=== PATIENT | male | born 1950 ===

== ENCOUNTER 2020-05-13 08:00 | Outpatient (REF) | payer MEDICARE, MEDICAID, SELFPAY ==
[2020-05-13 12:25] LABS: Alanine Aminotransferase 15 U/L (0-40); Albumin Level 4.2 g/dL (3.5-5.0); Alkaline Phosphatase 50 U/L (39-117); Anion Gap 14 (12-20); Aspartate Amino Transferase 21 U/L (5-37); Bilirubin Direct 0.2 mg/dL (0.0-0.5); Bilirubin Total 0.6 mg/dL (0.0-1.0); Blood Urea Nitrogen 18 mg/dL (9-16); Calcium 8.8 mg/dL (8.4-10.2); Carbon Dioxide 29 mmol/L (22-29); Chloride 103 mmol/L (96-108); Estimated Glomerular Filt Rate > 60; Glucose Random 93 mg/dL (60-115); Potassium 3.9 mmol/L (3.3-5.1); Sodium 142 mmol/L (135-145); Total Protein 7.1 g/dL (6.5-8.0)
[2020-05-14 07:27] LABS: LDL Cholesterol Direct 132 mg/dL (<100)
== END 2020-05-13 08:01 | disposition home or self-care (01) ==
LOC: HO.HMGCLDS 08:00
PROVIDERS: PCP Internal Medicine; Visit Provider Internal Medicine
DX: I10 Essential (primary) hypertension (principal)
CPT/HCPCS: 36415; 80048; 80076; 83721

== ENCOUNTER → 2020-07-18 14:58 | Outpatient (BNVA) | payer SELFPAY | PROVIDERS: PCP Internal Medicine; Visit Provider Internal Medicine | DX: Z02.79 Encounter for issue of other medical certificate (principal) ==

== ENCOUNTER 2020-08-13 13:44 | Outpatient (REF) | payer MEDICARE, MEDICAID, SELFPAY ==
[2020-08-13 16:14] LABS: Glucose Urine UA NEG (NEG); Leukocyte Esterase Urine NEG (NEG); Nitrite Urine NEG (NEG); Urine Blood NEG (NEG); Urine Ketones 5 MG/DL (NEG); Urine Protein TRACE MG/DL (NEG-TRACE)
[2020-08-13 16:15] LABS: Appearance Urine CLEAR; Color Urine YELLOW
== END 2020-08-13 13:45 | disposition home or self-care (01) ==
LOC: HO.HMGCLDS 13:44
PROVIDERS: PCP Internal Medicine; Visit Provider Internal Medicine
DX: R31.9 Hematuria, unspecified (principal)
CPT/HCPCS: 81003

== ENCOUNTER 2020-11-12 13:52 | Outpatient (REF) | payer MEDICARE, MEDICAID, SELFPAY ==
[2020-11-12 17:15] LABS: Alanine Aminotransferase 24 U/L (0-40); Albumin Level 4.1 g/dL (3.5-5.0); Alkaline Phosphatase 56 U/L (39-117); Anion Gap 11 (12-20); Aspartate Amino Transferase 22 U/L (5-37); Bilirubin Total 0.3 mg/dL (0.0-1.0); Blood Urea Nitrogen 17 mg/dL (9-16); Carbon Dioxide 27 mmol/L (22-29); Chloride 103 mmol/L (96-108); Estimated Glomerular Filt Rate 60; Glucose Random 130 mg/dL (60-115); Potassium 4.1 mmol/L (3.3-5.1); Sodium 137 mmol/L (135-145); Total Protein 7.1 g/dL (6.5-8.0)
== END 2020-11-12 13:53 | disposition home or self-care (01) ==
LOC: HO.HMGCLDS 13:52
PROVIDERS: PCP Internal Medicine; Visit Provider Internal Medicine
DX: I10 Essential (primary) hypertension (principal); R31.9 Hematuria, unspecified
CPT/HCPCS: 36415; 80053

== ENCOUNTER 2021-08-21 07:39 | Outpatient (REF) | payer MEDICARE, MEDICAID, SELFPAY ==
[2021-08-21 11:25] LABS: MANUAL DIFF FLAG NO
[2021-08-21 11:34] LABS: Basophils Percent Auto 0.3 % (0-2); Eosinophils Percent Auto 2.4 % (0-4); Hemoglobin 14.2 g/dl (14.0-18.0); Imm Gran Abs Auto 0.01 X10*3/uL (0.00-0.03); Imm Gran Pct Auto 0.2 % (0.0-0.4); Lymphocytes Absolute Auto 2.6 X10*3/uL (1.2-4.9); Lymphocytes Percent Auto 41.1 % (20-40); Mean Corpuscular Hemoglobin 29.4 pg (27.0-33.0); Monocytes Absolute Auto 0.6 X10*3/uL (0.1-1.2); Monocytes Percent Auto 8.8 % (2-11); Neutrophils Percent Auto 47.2 % (45-73); Platelet Count 197 X10*3/uL (160-400); Red Blood Count 4.83 X10*6/uL (4.60-5.80); Red Cell Distribution Width 13.3 % (11.0-16.0); White Blood Count 6.4 X10*3/uL (4.8-10.8)
[2021-08-21 11:35] LABS: Eosinophils Absolute Auto 0.2 X10*3/uL (0.0-0.4)
[2021-08-21 12:10] LABS: Alanine Aminotransferase 58 U/L (0-40); Albumin Level 4.2 g/dL (3.5-5.0); Alkaline Phosphatase 51 U/L (39-117); Anion Gap 13 (12-20); Aspartate Amino Transferase 42 U/L (5-37); Bilirubin Total 0.5 mg/dL (0.0-1.0); Blood Urea Nitrogen 18 mg/dL (9-16); Calcium 9.2 mg/dL (8.4-10.2); Carbon Dioxide 27 mmol/L (22-29); Chloride 104 mmol/L (96-108); Estimated Glomerular Filt Rate 60; Glucose Fasting 100 mg/dL (60-99); Potassium 4.2 mmol/L (3.3-5.1); Sodium 140 mmol/L (135-145); Total Protein 7.4 g/dL (6.5-8.0)
[2021-08-21 12:13] LABS: TSH reflex Free T4 1.42 uIU/mL (0.32-4.0)
[2021-08-23 04:02] LABS: LDL Cholesterol Direct 141 mg/dL (<100)
== END 2021-08-21 07:40 | disposition home or self-care (01) ==
LOC: HO.HMGCLDS 07:39
PROVIDERS: Visit Provider Internal Medicine
DX: I10 Essential (primary) hypertension (principal)
CPT/HCPCS: 36415; 80053; 83721; 84443; 85025

== ENCOUNTER 2021-12-19 07:44 | Outpatient (REF) | payer MEDICARE, MEDICAID, SELFPAY ==
[2021-12-19 12:09] LABS: Alanine Aminotransferase 16 U/L (0-40); Albumin Level 4.2 g/dL (3.5-5.0); Alkaline Phosphatase 59 U/L (39-117); Anion Gap 13 (12-20); Aspartate Amino Transferase 20 U/L (5-37); Bilirubin Total 0.4 mg/dL (0.0-1.0); Blood Urea Nitrogen 14 mg/dL (9-16); Calcium 9.1 mg/dL (8.4-10.2); Carbon Dioxide 31 mmol/L (22-29); Chloride 101 mmol/L (96-108); Cholesterol 193 mg/dL; Estimated Glomerular Filt Rate 58; Glucose Fasting 95 mg/dL (60-99); HDL Cholesterol 48 mg/dL; LDL Cholesterol Calculated 130 mg/dl; Potassium 4.2 mmol/L (3.3-5.1); Sodium 141 mmol/L (135-145); Total Protein 7.3 g/dL (6.5-8.0); Triglycerides 79 mg/dL
== END 2021-12-19 07:45 | disposition home or self-care (01) ==
LOC: HO.HMGCLDS 07:44
PROVIDERS: PCP Internal Medicine; Visit Provider Internal Medicine
DX: I10 Essential (primary) hypertension (principal); R73.01 Impaired fasting glucose; R79.89 Other specified abnormal findings of blood chemistry
CPT/HCPCS: 36415; 80053; 80061

== ENCOUNTER 2022-09-10 14:57 | Outpatient (AMB) | payer MEDICARE, MEDICAID, SELFPAY ==
[2022-09-10 14:59] VITALS: BP 190/98; PULSE 68; O2SAT 98
--- NOTE | 2022-09-10 15:00 | A.OFFPC_ITS ---
Vital Signs 09/10/22 14:59 09/10/22 15:05 Height 6 ft BP 190/98 H 180/92 H Blood Pressure Location Rt brachial Lt brachial Position Sitting Sitting Pulse 68 Pulse Source Pulse Oximeter Pulse Oximetry (%) 98 Oxygen Delivery Method Room Air Intake Visit Reasons: Hypertension Allergies none Allergy (Unknown, Uncoded 11/12/20 13:31) unknown Medication List - Last Reconciled 09/10/22 by Kelly Owusu MD atenolol 100 mg PO DAILY 30 days bisacodyl (Dulcolax (bisacodyl)) 10 mg (2 x 5 mg) PO ONCE 1 day polyethylene glycol 3350 (Miralax) 238 grams PO ONCE 1 day Tobacco use date assessed: 09/10/22 Fall risk assessment: No Falls in past year Last assessed Fall Risk: 09/10/22 Dental Screening Dental Screen Date: 09/10/22 Did you have a dental problem in the last 6 months where you did not have access to dental care?: No Was dental information given to patient?: No HPI Hypertension HPI Details Patient was last seen October of last year did not come in for follow-up appointment patient says that he does not know what happened His blood pressure is 180/92 at this time he is monitoring at home every now and then and mostly it is running above 140 but not as high as 180 Currently taking atenolol 100 mg I am changing it to atenolol 100-chlorthalidone 25 mg He is due for labs as well to be done fasting Return in 3 weeks for follow-up on blood pressure, bring blood pressure log from home and monitor as well. [facility] Social History Housing: House Alcohol intake: never Patient Tobacco Use Status: Never used Tobacco e-Cigarette/Vaping Use: Never Used Second Hand Smoke Exposure: No Current occupational status: retired Cognitive needs: No Hearing needs: No Vision needs: Yes Questionnaire AUDIT C Alcohol Use Questionnaire (AUDIT-C) 1. How often do you have a drink containing alcohol?: Never 3. How often do you have six or more drinks on one occasion?: Never Total Score: 0 Score Reviewed/Action Taken: Yes Review of Systems Const Denies chills and Denies fever(s) ENT Denies epistaxis and Denies nasal discharge Card Denies chest pain Resp Denies chest congestion, Denies cough and Denies hemoptysis GI Denies diarrhea and Denies nausea Skin/Breast Denies rash Neuro Reports no additional complaints Psych Reports no additional complaints Endo Reports no additional complaints Physical exam (Primary Care) Vital Signs: Last Vital Signs Pulse 68 09/10/22 14:59 BP 180/92 H 09/10/22 15:05 Pulse Ox 98 09/10/22 14:59 Oxygen Delivery Method Room Air 09/10/22 14:59 Tobacco/Smoking Status: Tobacco use Status Tobacco use date assessed 09/10/22 09/10/22 15:02 Patient Tobacco Use Status Never used Tobacco 09/10/22 15:02 e-Cigarette/Vaping Use Never Used 09/10/22 15:02 Const General: cooperative, comfortable and no acute distress Orientation/consciousness: patient oriented x3 HENMT Head: Yes normocephalic Eyes General: appearance normal, both eyes and all related structures Neck Neck: Yes supple Resp Effort & Inspection: normal respiratory effort, no cough and no stridor Cardio Rhythm: regular rhythm Heart sounds: S1 normal heart sound present and S2 normal heart sound present Skin General skin exam: turgor normal Neuro General: patient oriented x3, tone normal and moves all extremities Extrem Right lower extremity: no edema Left lower extremity: no edema Assessment and Plan Assessment & Plan (1) Hypertension, essential: Code(s): I10 - Essential (primary) hypertension (2) Impaired fasting blood sugar: Code(s): R73.01 - Impaired fasting glucose (3) LFT elevation: Code(s): R79.89 - Other specified abnormal findings of blood chemistry Plan Patient was last seen October of last year did not come in for follow-up appointment patient says that he does not know what happened His blood pressure is 180/92 at this time he is monitoring at home every now and then and mostly it is running above 140 but not as high as 180 Currently taking atenolol 100 mg I am changing it to atenolol 100-chlorthalidone 25 mg He is due for labs as well to be done fasting Return in 3 weeks for follow-up on blood pressure, bring blood pressure log from home and monitor as well. Orders: Orders Complete Blood Count Auto Diff Today I10 - Essential (primary) hypertension, R73.01 - Impaired fasting glucose, R79.89 - Other specified abnormal findings of blood chemistry Comprehensive [place]. Panel Fast Today I10 - Essential (primary) hypertension, R73.01 - Impaired fasting glucose, R79.89 - Other specified abnormal findings of blood chemistry Lipid Panel Today I10 - Essential (primary) hypertension, R73.01 - Impaired fasting glucose, R79.89 - Other specified abnormal findings of blood chemistry TSH reflex Free T4 Today I10 - Essential (primary) hypertension, R73.01 - Impai red fasting glucose, R79.89 - Other specified abnormal findings of blood chemistry Medications: New atenolol-chlorthalidone 100-25 mg 1 tab PO DAILY 90 tabs 0RF Blood pressure Coding Level of Care Code Est Pt Level 3 (77568) Diagnoses Hypertension, essential I10 Impaired fasting blood sugar R73.01 LFT elevation R79.89
[2022-09-10 15:05] VITALS: BP 180/92
== END 2022-09-10 15:31 | disposition home or self-care (01) ==
PROVIDERS: PCP Internal Medicine; Visit Provider Internal Medicine
DX: I10 Essential (primary) hypertension (principal); R73.01 Impaired fasting glucose; R79.89 Other specified abnormal findings of blood chemistry
CPT/HCPCS: 99213

== ENCOUNTER 2022-09-30 08:22 | Outpatient (REF) | payer MEDICARE, MEDICAID, SELFPAY ==
[2022-09-30 11:33] LABS: MANUAL DIFF FLAG NO
[2022-09-30 12:02] LABS: Basophils Percent Auto 0.5 % (0-2); Eosinophils Absolute Auto 0.2 X10*3/uL (0.0-0.4); Eosinophils Percent Auto 2.2 % (0-4); Hematocrit 45.5 % (42.0-52.0); Hemoglobin 14.9 g/dl (14.0-18.0); Imm Gran Abs Auto 0.02 X10*3/uL (0.00-0.03); Imm Gran Pct Auto 0.3 % (0.0-0.4); Lymphocytes Absolute Auto 3.1 X10*3/uL (1.2-4.9); Lymphocytes Percent Auto 41.6 % (20-40); Mean Corpuscular HGB Conc 32.7 g/dl (31.0-36.0); Mean Corpuscular Hemoglobin 29.5 pg (27.0-33.0); Mean Corpuscular Volume 90.1 fL (80.0-98.0); Mean Platelet Volume 11.7 fL (9.4-12.4); Monocytes Absolute Auto 0.7 X10*3/uL (0.1-1.2); Monocytes Percent Auto 9.3 % (2-11); Neutrophils Absolute Auto 3.4 x10*3/uL (2.0-8.3); Neutrophils Percent Auto 46.1 % (45-73); Platelet Count 199 X10*3/uL (160-400); Red Blood Count 5.05 X10*6/uL (4.60-5.80); Red Cell Distribution Width 12.8 % (11.0-16.0); White Blood Count 7.4 X10*3/uL (4.8-10.8)
[2022-09-30 12:48] LABS: Alanine Aminotransferase 24 U/L (0-40); Albumin Level 4.2 g/dL (3.5-5.0); Alkaline Phosphatase 57 U/L (39-117); Anion Gap 13 (12-20); Aspartate Amino Transferase 32 U/L (5-37); Bilirubin Total 0.5 mg/dL (0.0-1.0); Blood Urea Nitrogen 22 mg/dL (9-16); Calcium 9.3 mg/dL (8.4-10.2); Carbon Dioxide 30 mmol/L (22-29); Chloride 101 mmol/L (96-108); Cholesterol 189 mg/dL; Estimated Glomerular Filt Rate 54; Glucose Fasting 97 mg/dL (60-99); HDL Cholesterol 50 mg/dL; LDL Cholesterol Calculated 127 mg/dl; Potassium 4.1 mmol/L (3.3-5.1); Sodium 140 mmol/L (135-145); Total Protein 7.7 g/dL (6.5-8.0); Triglycerides 62 mg/dL
[2022-09-30 12:49] LABS: TSH reflex Free T4 1.93 uIU/mL (0.32-4.0)
== END 2022-09-30 08:23 | disposition home or self-care (01) ==
LOC: HO.HMGCLDS 08:22
PROVIDERS: PCP Internal Medicine; Visit Provider Internal Medicine
DX: I10 Essential (primary) hypertension (principal); R73.01 Impaired fasting glucose; R79.89 Other specified abnormal findings of blood chemistry
CPT/HCPCS: 36415; 80053; 80061; 84443; 85025

== ENCOUNTER 2022-10-05 14:11 | Outpatient (AMB) | payer MEDICARE, MEDICAID, SELFPAY ==
[2022-10-05 14:16] VITALS: BP 168/70; PULSE 69; O2SAT 98; BMI 25.0
--- NOTE | 2022-10-05 14:16 | A.OFFPC_ITS ---
Vital Signs 10/05/22 14:16 Height 6 ft Weight 184 lb 4 oz BMI 25.0 BP 168/70 H Blood Pressure Location Lt brachial Position Sitting Pulse 69 Pulse Source Pulse Oximeter Pulse Oximetry (%) 98 Oxygen Delivery Method Room Air Intake Visit Reasons: 3wk follow up Allergies none Allergy (Unknown, Uncoded 11/12/20 13:31) unknown Medication List - Last Reconciled 10/05/22 by Kelly Owusu MD atenolol-chlorthalidone 100-25 mg 1 tab PO DAILY bisacodyl (Dulcolax (bisacodyl)) 10 mg (2 x 5 mg) PO ONCE 1 day polyethylene glycol 3350 (Miralax) 238 grams PO ONCE 1 day Tobacco use date assessed: 10/05/22 Fall risk assessment: No Falls in past year Last assessed Fall Risk: 10/05/22 Dental Screening Dental Screen Date: 10/05/22 Did you have a dental visit in the last 12 months?: Yes Did you have a dental problem in the last 6 months where you did not have access to dental care?: No Was dental information given to patient?: No HPI 3wk follow up HPI Details Patient brought blood pressure monitor from home we checked his blood pressure with our monitor and his monitor and there was not much difference. At home his blood pressure is running around 120s to 130s systolic Labs done recently reviewed with the patient as well Patient has no complaint at this time He will return in 4 months for follow-up appointment [facility] Social History Housing: House Alcohol intake: never Patient Tobacco Use Status: Never used Tobacco e-Cigarette/Vaping Use: Never Used Second Hand Smoke Exposure: No Current occupational status: retired Cognitive needs: No Hearing needs: No Vision needs: Yes Questionnaire AUDIT C Alcohol Use Questionnaire (AUDIT-C) 1. How often do you have a drink containing alcohol?: Never 3. How often do you have six or more drinks on one occasion?: Never Total Score: 0 Score Reviewed/Action Taken: Yes Review of Systems Const Denies chills and Denies fever(s) ENT Denies epistaxis and Denies nasal discharge Card Denies chest pain Resp Denies chest congestion, Denies cough and Denies hemoptysis GI Denies diarrhea and Denies nausea Skin/Breast Denies rash Neuro Reports no additional complaints Psych Reports no additional complaints Endo Reports no additional complaints Physical exam (Primary Care) Vital Signs: Last Vital Signs Pulse 69 10/05/22 14:16 BP 168/70 H 10/05/22 14:16 Pulse Ox 98 10/05/22 14:16 Oxygen Delivery Method Room Air 10/05/22 14:16 BMI result Body Mass Index 25.0 Tobacco/Smoking Status: Tobacco use Status Tobacco use date assessed 10/05/22 10/05/22 14:17 Patient Tobacco Use Status Never used Tobacco 10/05/22 14:17 e-Cigarette/Vaping Use Never Used 10/05/22 14:17 Const General: cooperative, comfortable and no acute distress Orientation/consciousness: patient oriented x3 HENMT Head: Yes normocephalic Eyes General: appearance normal, both eyes and all related structures Neck Neck: Yes supple Resp Effort & Inspection: normal respiratory effort, no cough and no stridor Cardio Rhythm: regular rhythm Heart sounds: S1 normal heart sound present and S2 normal heart sound present Skin General skin exam: turgor normal Neuro General: patient oriented x3, tone normal and moves all extremities Extrem Right lower extremity: no edema Left lower extremity: no edema Assessment and Plan Assessment & Plan (1) Hypertension, essential: Code(s): I10 - Essential (primary) hypertension Plan Patient brought blood pressure monitor from home we checked his blood pressure with our monitor and his monitor and there was not much difference. At home his blood pressure is running around 120s to 130s systolic Labs done recently reviewed with the patient as well Patient has no complaint at this time He will return in 4 months for follow-up appointment Medications: Discontinued atenolol Discontinued Reason: Doctor's Order 100 mg PO DAILY 30 days 30 tabs 0RF I10 - Essential (primary) hypertension Coding Level of Care Code Est Pt Level 3 (34464) Diagnoses Hypertension, essential I10
== END 2022-10-05 15:57 | disposition home or self-care (01) ==
PROVIDERS: PCP Internal Medicine; Visit Provider Internal Medicine
DX: I10 Essential (primary) hypertension (principal)
CPT/HCPCS: 99213

== ENCOUNTER 2023-06-07 13:36 | Outpatient (AMB) | payer MEDICARE, MEDICAID, SELFPAY ==
[2023-06-07 13:38] VITALS: BP 158/70; PULSE 62; O2SAT 98; BMI 27.3
--- NOTE | 2023-06-07 13:38 | MHC.PC.OV ---
Vital Signs 06/07/23 13:38 Height 6 ft Weight 201 lb BMI 27.3 BP 158/70 H Blood Pressure Location Rt brachial Position Sitting Pulse 62 Pulse Source Pulse Oximeter Pulse Oximetry (%) 98 Oxygen Delivery Method Room Air Intake Visit Reasons: 8M F/U no showed 05/24/23 Allergies none Allergy (Unknown, Uncoded 11/12/20 13:31) unknown Medication List - Last Reconciled 06/07/23 by Kelly Owusu MD atenolol-chlorthalidone 100-25 mg 1 tab PO DAILY Tobacco use date assessed: 06/07/23 Fall risk assessment: No Falls in past year Last assessed Fall Risk: 06/07/23 Dental Screening Dental Screen Date: 06/07/23 Did you have a dental visit in the last 12 months?: Yes Did you have a dental problem in the last 6 months where you did not have access to dental care?: No Was dental information given to patient?: Patient has dentist HPI 8M F/U no showed 05/24/23 HPI Details Patient is a 72-year-old gentleman who was last seen September of last year Then he missed his follow-up appointment in January He is taking his blood pressure medication regularly He brought in his blood pressure monitor which is calibrated with ours At home his blood pressure is running around 130 systolic and 75-80 diastolic He is due for labs Patient is prediabetic also have slightly elevated LFT that need to be monitored He has appointment in October for Medicare wellness [facility] Social History Housing: House Alcohol intake: never Patient Tobacco Use Status: Never used Tobacco e-Cigarette/Vaping Use: Never Used Second Hand Smoke Exposure: No Current occupational status: retired Cognitive needs: No Hearing needs: No Vision needs: Yes Review of Systems Const Denies chills and Denies fever(s) ENT Denies epistaxis and Denies nasal discharge Card Denies chest pain Resp Denies chest congestion, Denies cough and Denies hemoptysis GI Denies diarrhea and Denies nausea Skin/Breast Denies rash Neuro Reports no additional complaints Psych Reports no additional complaints Endo Reports no additional complaints Physical exam (Primary Care) Vital Signs: Last Vital Signs Pulse 62 06/07/23 13:38 BP 158/70 H 06/07/23 13:38 Pulse Ox 98 06/07/23 13:38 Oxygen Delivery Method Room Air 06/07/23 13:38 BMI result Body Mass Index 27.3 Tobacco/Smoking Status: Tobacco use Status Tobacco use date assessed 06/07/23 06/07/23 13:39 Patient Tobacco Use Status Never used Tobacco 06/07/23 13:39 e-Cigarette/Vaping Use Never Used 06/07/23 13:39 Const General: cooperative, comfortable and no acute distress Orientation/consciousness: patient oriented x3 HENMT Head: Yes normocephalic Eyes General: appearance normal, both eyes and all related structures Neck Neck: Yes supple Resp Effort & Inspection: normal respiratory effort, no cough and no stridor Cardio Rhythm: regular rhythm Heart sounds: S1 normal heart sound present and S2 normal heart sound present Skin General skin exam: turgor normal Neuro General: patient oriented x3, tone normal and moves all extremities Extrem Right lower extremity: no edema Left lower extremity: no edema Assessment and Plan Assessment & Plan (1) Hypertension, essential: Code(s): I10 - Essential (primary) hypertension (2) LFT elevation: Code(s): R79.89 - Other specified abnormal findings of blood chemistry (3) Impaired fasting blood sugar: Code(s): R73.01 - Impaired fasting glucose Plan Patient is a 72-year-old gentleman who was last seen September of last year Then he missed his follow-up appointment in January He is taking his blood pressure medication regularly He brought in his blood pressure monitor which is calibrated with ours At home his blood pressure is running around 130 systolic and 75-80 diastolic He is due for labs Patient is prediabetic also have slightly elevated LFT that need to be monitored He has appointment in October for Medicare wellness Orders: Orders Complete Blood Count Auto Diff Today I10 - Essential (primary) hypertension, R73.01 - Impaired fasting glucose, R79.89 - Other specified abnormal findings of blood chemistry Comprehensive Met. Panel Today I10 - Essential (primary) hypertension, R73.01 - Impaired fasting glucose, R79.89 - Other specified abnormal findings of blood chemistry LDL Cholesterol Direct Today I10 - Essential (primary) hypertension, R73.01 - Impaired fasting glucose, R79.89 - Other specified abnormal findings of blood chemistry Hemoglobin A1c Today R73.01 - Impaired fasting glucose Coding Level of Care Code Est Pt Level 3 (81087) Diagnoses Hypertension, essential I10 LFT elevation R79.89 Impaired fasting blood sugar R73.01
== END 2023-06-07 15:27 | disposition home or self-care (01) ==
PROVIDERS: PCP Internal Medicine; Visit Provider Internal Medicine
DX: I10 Essential (primary) hypertension (principal); R79.89 Other specified abnormal findings of blood chemistry; R73.01 Impaired fasting glucose
CPT/HCPCS: 99213

== ENCOUNTER 2023-06-07 13:53 | Outpatient (REF) | payer MEDICARE, MEDICAID, SELFPAY ==
[2023-06-07 16:13] LABS: MANUAL DIFF FLAG NO
[2023-06-07 16:18] LABS: Basophils Percent Auto 0.5 % (0-2); Eosinophils Absolute Auto 0.1 X10*3/uL (0.0-0.4); Hematocrit 42.1 % (42.0-52.0); Hemoglobin 14.2 g/dl (14.0-18.0); Imm Gran Abs Auto 0.01 X10*3/uL (0.00-0.03); Imm Gran Pct Auto 0.2 % (0.0-0.4); Lymphocytes Absolute Auto 2.2 X10*3/uL (1.2-4.9); Lymphocytes Percent Auto 36.7 % (20-40); Mean Corpuscular HGB Conc 33.7 g/dl (31.0-36.0); Mean Corpuscular Volume 88.8 fL (80.0-98.0); Mean Platelet Volume 11.7 fL (9.4-12.4); Monocytes Absolute Auto 0.5 X10*3/uL (0.1-1.2); Neutrophils Percent Auto 51.6 % (45-73); Platelet Count 201 X10*3/uL (160-400); Red Blood Count 4.74 X10*6/uL (4.60-5.80); Red Cell Distribution Width 12.8 % (11.0-16.0); White Blood Count 5.9 X10*3/uL (4.8-10.8)
[2023-06-07 16:32] LABS: Estimated Average Glucose 120 mg/dL; Hemoglobin A1c % 5.8 % (<6.0)
[2023-06-07 16:55] LABS: Alanine Aminotransferase 68 U/L (0-40); Alkaline Phosphatase 52 U/L (39-117); Anion Gap 14 (12-20); Aspartate Amino Transferase 52 U/L (5-37); Bilirubin Total 0.6 mg/dL (0.0-1.0); Blood Urea Nitrogen 20 mg/dL (9-16); Carbon Dioxide 30 mmol/L (22-29); Chloride 99 mmol/L (96-108); Estimated Glomerular Filt Rate 51; Glucose Random 107 mg/dL (60-115); Potassium 3.5 mmol/L (3.3-5.1); Sodium 139 mmol/L (135-145); Total Protein 7.3 g/dL (6.5-8.0)
[2023-06-09 01:38] LABS: LDL Cholesterol Direct 137 mg/dL (<100)
== END 2023-06-07 13:54 | disposition home or self-care (01) ==
LOC: HO.HMGCLDS 13:53
PROVIDERS: PCP Internal Medicine; Visit Provider Internal Medicine
DX: I10 Essential (primary) hypertension (principal); R79.89 Other specified abnormal findings of blood chemistry; R73.01 Impaired fasting glucose
CPT/HCPCS: 36415; 80053; 83036; 83721; 85025

== ENCOUNTER 2023-07-15 09:18 | Outpatient (REF) | payer MEDICARE, MEDICAID, SELFPAY ==
[2023-07-15 11:13] LABS: Alanine Aminotransferase 19 U/L (0-40); Alkaline Phosphatase 53 U/L (39-117); Aspartate Amino Transferase 27 U/L (5-37); Bilirubin Direct 0.1 mg/dL (0.0-0.5); Bilirubin Total 0.5 mg/dL (0.0-1.0); Total Protein 7.2 g/dL (6.5-8.0)
== END 2023-07-15 09:19 | disposition home or self-care (01) ==
LOC: HO.HMGCLDS 09:18
PROVIDERS: PCP Internal Medicine; Visit Provider Internal Medicine
DX: R79.89 Other specified abnormal findings of blood chemistry (principal)
CPT/HCPCS: 36415; 80076

== ENCOUNTER 2023-11-11 08:41 | Outpatient (AMB) | payer MEDICARE, MEDICAID, SELFPAY ==
[2023-11-11 08:42] VITALS: BP 148/82; PULSE 73; O2SAT 98; BMI 25.7
--- NOTE | 2023-11-11 08:42 | A.OFFPC_ITS ---
Vital Signs 11/11/23 08:42 Height 6 ft Weight 189 lb 6 oz BMI 25.7 BP 148/82 H Blood Pressure Location Lt brachial Position Sitting Pulse 73 Pulse Source Pulse Oximeter Pulse Oximetry (%) 98 Oxygen Delivery Method Room Air Intake Visit Reasons: Complicated F/U Per [place] Allergies none Allergy (Unknown, Uncoded 11/12/20 13:31) unknown Medication List - Last Reconciled 11/11/23 by Kelly Owusu MD atenolol-chlorthalidone 100-25 mg 1 tab PO DAILY Tobacco use date assessed: 11/11/23 Fall risk assessment: No Falls in past year Last assessed Fall Risk: 11/11/23 Dental Screening Dental Screen Date: 06/07/23 HPI Complicated F/U Per [place] HPI Details Patient is 73-year-old gentleman came in today for his six-month follow-up appointment Due for labs Blood pressure is still mildly elevated Patient brought his blood pressure monitor along At home his blood pressure is running in 120s systolic In clinic today it is 157 systolic He offers no other complaints Taking his blood pressure medication without any side effects He will return in six-month, patient was notified to do labs every six-month before arrival Order for six-month Lab placed as well. [facility] Social History Housing: House Alcohol intake: never Patient Tobacco Use Status: Never used Tobacco e-Cigarette/Vaping Use: Never Used Second Hand Smoke Exposure: No Current occupational status: retired Cognitive needs: No Hearing needs: No Vision needs: Yes Questionnaire PHQ-9 Over the last 2 weeks, how often have you been bothered by any of the following problems? 1. Little interest or pleasure in doing things: not at all 2. Feeling down, depressed, or hopeless: not at all 3. Trouble falling or staying asleep, or sleeping too much: not at all 4. Feeling tired or having little energy: not at all 5. Poor appetite or overeating: not at all 6. Feeling bad about yourself - or that you are a failure or have let yourself or your family down: not at all 7. Trouble concentrating on things, such as reading the newspaper or watching television: not at all 8. Moving or speaking so slowly that other people could have noticed. Or the opposite - being so fidgety or restless that you have been moving around a lot more than usual: not at all 9. Thoughts that you would be better off or of hurting yourself in some way: not at all Total score: 0 Depression Screening Interpretation: Negative Depression Screening Done: Yes 51303 - PHQ-9 Billing: Yes Source: Developed by Drs. Michael Conway, Melissa Simmons, Nima Bonilla and colleagues, with an educational viraj from [employer]. Thrive Questionnaire I am a: Patient What is your living situation today?: I choose not to answer this question Within the past 12 months, did the food you bought not last and you didn't have the money to get more?: I choose not to answer this question Within the past 12 months, did you worry whether your food would run out before you got money to buy more?: I choose not to answer this question Do you have trouble paying for medicines?: I choose not to answer this question Do you have trouble getting transportation to medical appointments?: I choose not to answer this question Do you have trouble paying your heating and electricity bill?: I choose not to answer this question Do you have trouble taking care of your child, family member or friend?: I choose not to answer this question Do you have trouble with day-to-day activities such as bathing, preparing meals, shopping, managing finances, etc.?: I choose not to answer this question Are you interested in more education?: I choose not to answer this question Please select the resources that you would like help with: None Currently or been in a relationship where the following occur: I choose not to answer THRIVE Score: 0 AUDIT C Alcohol Use Questionnaire (AUDIT-C) 1. How often do you have a drink containing alcohol?: Never Total Score: 0 ULISSES-7 AMB Questionnaire ULISSES-7 Feeling nervous, anxious, or on edge: 0 = Not at all Not being able to stop or control worryin = Not at all Worrying too much about different things: 0 = Not at all Trouble relaxin = Not at all Being so restless that it is hard to sit still: 0 = Not at all Becoming easily annoyed or irritable: 0 = Not at all Feeling afraid as if something awful might happen: 0 = Not at all Total ULISSES-7 score (0-4 normal; 5-9 mild; 10-14 moderate; 15-21 severe): 0 Source: Developed by Drs. Michael Conway, Melissa Simmons, Nima Bonilla and colleagues, with an educational viraj from [employer]. Review of Systems Const Denies chills and Denies fever(s) ENT Denies epistaxis and Denies nasal discharge Card Denies chest pain Resp Denies chest congestion, Denies cough and Denies hemoptysis GI Denies diarrhea and Denies nausea Skin/Breast Denies rash Neuro Reports no additional complaints Psych Reports no additional complaints Endo Reports no additional complaints Physical exam (Primary Care) Vital Signs: Last Vital Signs Pulse 73 11/11/23 08:42 BP 148/82 H 11/11/23 08:42 Pulse Ox 98 11/11/23 08:42 Oxygen Delivery Method Room Air 11/11/23 08:42 BMI result Body Mass Index 25.7 Tobacco/Smoking Status: Tobacco use Status Tobacco use date assessed 11/11/23 11/11/23 08:45 Patient Tobacco Use Status Never used Tobacco 11/11/23 08:45 e-Cigarette/Vaping Use Never Used 11/11/23 08:45 PHQ-9: PHQ-9 Score PHQ-9: Total score 0 11/11/23 08:55 Depression Screening Interpretation: Negative Currently or been in a relationship where the following occur: I choose not to answer Const General: cooperative, comfortable and no acute distress Orientation/consciousness: patient oriented x3 HENMT Head: Yes normocephalic Eyes General: appearance normal, both eyes and all related structures Neck Neck: Yes supple Resp Effort & Inspection: normal respiratory effort, no cough and no stridor Cardio Rhythm: regular rhythm Heart sounds: S1 normal heart sound present and S2 normal heart sound present Skin General skin exam: turgor normal Neuro General: patient oriented x3, tone normal and moves all extremities Extrem Right lower extremity: no edema Left lower extremity: no edema Assessment and Plan Assessment & Plan (1) Hypertension, essential: Code(s): I10 - Essential (primary) hypertension (2) Impaired fasting blood sugar: Code(s): R73.01 - Impaired fasting glucose Plan Patient is 73-year-old gentleman came in today for his six-month follow-up appointment Due for labs Blood pressure is still mildly elevated Patient brought his blood pressure monitor along At home his blood pressure is running in 120s systolic In clinic today it is 157 systolic He offers no other complaints Patient has impaired fasting sugar, we are monitoring it Taking his blood pressure medication without any side effects He will return in six-month, patient was notified to do labs every six-month before arrival Order for six-month Lab placed as well. Orders: Orders Comprehensive Met. Panel Today I10 - Essential (primary) hypertension, R73.01 - Impaired fasting glucose Hemoglobin A1c Today R73.01 - Impaired fasting glucose Complete Blood Count Auto Diff 6 Months I10 - Essential (primary) hypertension, R73.01 - Impaired fasting glucose Comprehensive [place]. Panel Fast 6 Months I10 - Essential (primary) hypertension, R73.01 - Impaired fasting glucose Complete Blood Count Auto Diff Today I10 - Essential (primary) hypertension, R73.01 - Impaired fasting glucose Hemoglobin A1c 6 Months I10 - Essential (primary) hypertension, R73.01 - Impaired fasting glucose Lipid Panel 6 Months I10 - Essential (primary) hypertension, R73.01 - Impaired fasting glucose Coding Level of Care Code Est Pt Level 3 (00880) Diagnoses Hypertension, essential I10 Impaired fasting blood sugar R73.01
== END 2023-11-11 09:01 | disposition home or self-care (01) ==
PROVIDERS: PCP Internal Medicine; Visit Provider Internal Medicine
DX: I10 Essential (primary) hypertension (principal); R73.01 Impaired fasting glucose

== ENCOUNTER → 2023-11-11 08:41 | Outpatient (BNVA) | payer MEDICARE, MEDICAID, SELFPAY | PROVIDERS: PCP Internal Medicine; Visit Provider Internal Medicine | DX: I10 Essential (primary) hypertension (principal); R73.01 Impaired fasting glucose | CPT/HCPCS: 99212 ==

== ENCOUNTER 2023-11-11 09:04 | Outpatient (REF) | payer MEDICARE, MEDICAID, SELFPAY ==
[2023-11-11 10:05] LABS: MANUAL DIFF FLAG NO
[2023-11-11 10:11] LABS: Basophils Percent Auto 0.6 % (0-2); Eosinophils Absolute Auto 0.1 X10*3/uL (0.0-0.4); Eosinophils Percent Auto 2.3 % (0-4); Hematocrit 42.7 % (42.0-52.0); Imm Gran Abs Auto 0.01 X10*3/uL (0.00-0.03); Imm Gran Pct Auto 0.2 % (0.0-0.4); Lymphocytes Percent Auto 39.2 % (20-40); Mean Corpuscular HGB Conc 32.8 g/dl (31.0-36.0); Mean Corpuscular Hemoglobin 29.4 pg (27.0-33.0); Mean Corpuscular Volume 89.5 fL (80.0-98.0); Mean Platelet Volume 10.7 fL (9.4-12.4); Monocytes Absolute Auto 0.5 X10*3/uL (0.1-1.2); Monocytes Percent Auto 9.4 % (2-11); Neutrophils Absolute Auto 2.5 x10*3/uL (2.0-8.3); Neutrophils Percent Auto 48.3 % (45-73); Platelet Count 212 X10*3/uL (160-400); Red Blood Count 4.77 X10*6/uL (4.60-5.80); Red Cell Distribution Width 12.9 % (11.0-16.0); White Blood Count 5.2 X10*3/uL (4.8-10.8)
[2023-11-11 10:53] LABS: Alanine Aminotransferase 24 U/L (0-40); Alkaline Phosphatase 60 U/L (39-117); Anion Gap 9 (12-20); Aspartate Amino Transferase 33 U/L (5-37); Bilirubin Total 0.7 mg/dL (0.0-1.0); Blood Urea Nitrogen 15 mg/dL (9-16); Calcium 8.9 mg/dL (8.4-10.2); Carbon Dioxide 34 mmol/L (22-29); Chloride 100 mmol/L (96-108); Estimated Glomerular Filt Rate > 60; Glucose Random 98 mg/dL (60-115); Potassium 3.2 mmol/L (3.3-5.1); Sodium 140 mmol/L (135-145); Total Protein 7.5 g/dL (6.5-8.0)
[2023-11-11 10:58] LABS: Estimated Average Glucose 120 mg/dL; Hemoglobin A1C 149.5218 umol/L; Hemoglobin A1c % 5.8 % (<6.0)
== END 2023-11-11 09:05 | disposition home or self-care (01) ==
LOC: HO.HMGCLDS 09:04
PROVIDERS: PCP Internal Medicine; Visit Provider Internal Medicine
DX: I10 Essential (primary) hypertension (principal); R73.01 Impaired fasting glucose
CPT/HCPCS: 36415; 80053; 83036; 85025; 99212

== ENCOUNTER 2024-05-12 08:40 | Outpatient (REF) | payer MEDICARE, MEDICAID, SELFPAY ==
--- OUTSIDE RECORDS SUMMARY | 2024-05-12 08:42 | XMS_ITS | Clinical Summary ---
Author Organization 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 Role Phone Ray Padilla MD Primary Care Provider Unava ilable Surgical History Surgery Date Site/Laterality Comments HERNIA REPAIR 1986 Bilateral PROCEDURE: HISTORICAL HERNIA REPAIR/ING Family History Medical History Relation Name Comments Other: unknown Father Other cancer Mother Relation Name Status Comments Father (Age 87) Mother (Age 89) Social History Tobacco Use Types Packs/Day Years Used Date Smoking Tobacco: Never Alcohol Use Standard Drinks/Week Comments No 0 (1 standard drink = 0.6 oz pur e alcohol) Sex and Gender Information Value Date Recorded Sex Assigned at Not on file Legal Sex Male 12:09 PM EST Gender Identity Not on file Sexual Orientation Not on file Obstetrics History Plan of Treatment Health Maintenance Due Date Last Done Comments Pneumococcal Vaccine: 50+ Ye ars (1 of 1 - PCV) 2000 Zoster Vaccines (1 of 2) 2000 Abdominal Aortic Aneurysm (A AA) Screen 01/19/2022 Cholesterol Screening (Lipid Panel) 01/19/2022 Colorectal Cancer Screening: Colonoscopy 01/19/2022 Depression Screening 01/19/2022 Falls Risk Assessment 01/19/2022 Hepatitis C Screening 01/19/2022 Social Influencers of Health Screening 01/19/2022 DTaP,Tdap,and Td Vaccines (2 - Td or Tdap) 08/11/2022 08/11/2012 COVID-19 Vaccine ( - 2023-2 5 season) 2023 Influenza Vaccine (#1) 2023 RSV Immunization Patients 60 + Years Old (1 - 1-dose 75+ series) 2025 HIB Vaccines Aged Out No longer eligi ble based on patient's age to complete this topic HPV Vaccines Aged Out No longer eligi ble based on patient's age to complete this topic Hepatitis A Vaccines Aged Out No long er eligible based on patient's age to complete this topic Hepatitis B Vaccines Aged Out No long er eligible based on patient's age to complete this topic IPV Vaccines Aged Out No longer eligi ble based on patient's age to complete this topic MMR Vaccines Aged Out No longer eligi ble based on patient's age to complete this topic Meningococcal ACWY Vaccine Aged Out N o longer eligible based on patient's age to complete this topic Meningococcal B Vacine Aged Out No lo nger eligible based on patient's age to complete this topic RSV Immunization Patients Un cat 20 months Aged Out No longer eligible b ased on patient's age to complete this topic Varicella Vaccines Aged Out No longer eligible based on patient's age to complete this topic Care Teams [employer] Electrical [employer]er Relationship Specialty Start Date End Date Ray Padilla MD PCP - General Internal Medicine 07/22/16
--- OUTSIDE RECORDS SUMMARY | 2024-05-12 08:42 | XMS_ITS | Clinical Summary ---
Author Organization [facility] Address [address] [place] [address] Care Team Providers Care Sail Repairer Name Role Phone Unavailable Primary Care Provider Unavailabl e Source Comments PLEASE NOTE, if this patient is a minor, it may be UNLAWFUL to discuss sensitive information that is contained in these records (such as FAMILY PLANNING, MENTAL HEALTH or SUBSTANCE ABUSE) with the minor patient's parent or other person without the patient's specific authorization.[facility] Medications ibuprofen 600 mg tablet Take 1 Tablet by mouth 4 (four) times daily as needed for pain 20 Tablet 05/07/2021 Active amoxicillin (AMOXIL) 500 mg capsule Take 1 Capsule by mouth 3 (three) times daily 21 Capsule 05/07/2021 Active Active Problems No known active problems Social History Tobacco Use Types Packs/Day Years Used Date Smoking Tobacco: Never Assessed Social Connections Answer Date Recorded Connectedness 0 11/10/2023 Financial Resource Strain Answer Date R ecorded Financial Resource Strain 0 2019 Stress Answer Date Recorded Stress 0 07/06/2019 Physical Activity Answer Date Recorded Physical Activity 0 07/06/2019 Food Insecurity Answer Date Recorded Food 0 11/17/2023 Transportation Needs Answer Date Record ed Transportation 0 07/06/2019 Housing Stability Answer Date Recorded Housing 0 07/06/2019 Safety and Environment Answer Date Noel rded Safety 0 07/06/2019 Utilities Answer Date Recorded Utilities 0 07/06/2019 Employment Answer Date Recorded Stress 0 11/10/2023 Sex and Gender Information Value Date Recorded Sex Assigned at Not on file Legal Sex Male 7:03 AM PDT Gender Identity Not on file Sexual Orientation Not on file Last Filed Vital Signs Vital Sign Reading Time Taken Comments Blood Pressure 197/103 03/01/2022 10:31 AM EST Pulse 79 03/01/2022 10:31 AM EST Temperature - - Respiratory Rate - - Oxygen Saturation - - Inhaled Oxygen Concentration - - Weight - - Height - - Body Mass Index - - Plan of Treatment Health Maintenance Due Date Last Done Comments Dental FMX/Pano 1950 Hepatitis C Screening 1950 Lipid Screening 1950 Tobacco Screening 1950 Annual Preventive Care Visit 1968 Imm-DTaP/Tdap/Td (1 - Tdap) 1969 CT Colonography 06/17/1995 Colonoscopy 06/17/1995 Colorectal Cancer Screening 06/17/1995 FIT/gFOBT 06/17/1995 Fecal DNA 06/17/1995 Flexible Sigmoidoscopy 06/17/1995 Imm-Pneumococcal 65+ (1 of 1 - PCV) 2000 Imm-Zoster, Recombinant (1 of 2) 2000 Abdominal Aortic Aneurysm Screening 06/17/2015 Falls Prevention 06/17/2015 Hypertension Screening (#1) 03/01/2023 Dental Perio Charting 03/03/2023 03/01/2022 Dental Prophy 08/29/2023 08/26/2022, 01/0 10/2022, 08/25/2021 [id number] ( - season) 2023 Imm-Influenza (#1) 2023 Dental BW 10/24/2023 10/21/2022, 01/0 10/2022, 08/25/2021 Dental Examination 10/24/2023 10/21/2022, 0 03/01/2022, 08/25/2021 Alcohol and Drug Screen 02/22/2024 Depression Annual Screen 02/22/2024 Procedures Procedure Name Priority Date/Time Associated Diagnosis Comments BITEWINGS - FOUR RADIOGRAPHIC IMAGES Routine 10/21/2022 1:00 PM EDT Encounter for dental examination Full PERIODIC ORAL EVALUATION ESTABLISHED PATIENT Routine 10/21/2022 1:00 PM EDT Encounter for dental examination Full PROPHYLAXIS - ADULT Routine 023 9:40 AM EDT Encounter for dental examination and cleaning with abnormal findings COMP PERIODONTAL EVALUATION - NEW/EST PATIENT Routine 03/01/2022 10:20 AM EST Gingivitis, chronic, plaque induced from Last 3 Months or Most Recently Relevant to Health Maintenance Insurance [place] D[place] [facility] [place] [address]
[2024-05-12 12:01] LABS: MANUAL DIFF FLAG NO
[2024-05-12 12:06] LABS: Basophils Percent Auto 0.7 % (0-2); Eosinophils Absolute Auto 0.2 X10*3/uL (0.0-0.4); Eosinophils Percent Auto 2.7 % (0-4); Hematocrit 41.4 % (42.0-52.0); Hemoglobin 13.8 g/dl (14.0-18.0); Imm Gran Abs Auto 0.01 X10*3/uL (0.00-0.03); Imm Gran Pct Auto 0.2 % (0.0-0.4); Lymphocytes Absolute Auto 2.1 X10*3/uL (1.2-4.9); Lymphocytes Percent Auto 35.7 % (20-40); Mean Corpuscular HGB Conc 33.3 g/dl (31.0-36.0); Mean Corpuscular Hemoglobin 29.9 pg (27.0-33.0); Mean Corpuscular Volume 89.8 fL (80.0-98.0); Mean Platelet Volume 11.2 fL (9.4-12.4); Monocytes Absolute Auto 0.5 X10*3/uL (0.1-1.2); Monocytes Percent Auto 9.1 % (2-11); Neutrophils Absolute Auto 3.1 x10*3/uL (2.0-8.3); Neutrophils Percent Auto 51.6 % (45-73); Platelet Count 222 X10*3/uL (160-400); Red Blood Count 4.61 X10*6/uL (4.60-5.80); Red Cell Distribution Width 13.1 % (11.0-16.0)
[2024-05-12 12:26] LABS: Alanine Aminotransferase 32 U/L (0-40); Albumin Level 3.8 g/dL (3.5-5.0); Alkaline Phosphatase 53 U/L (39-117); Anion Gap 11 (12-20); Aspartate Amino Transferase 34 U/L (5-37); Bilirubin Total 0.7 mg/dL (0.0-1.0); Blood Urea Nitrogen 18 mg/dL (9-16); Calcium 8.9 mg/dL (8.4-10.2); Carbon Dioxide 31 mmol/L (22-29); Chloride 100 mmol/L (96-108); Cholesterol 143 mg/dL (<200); Estimated Glomerular Filt Rate > 60; Glucose Fasting 102 mg/dL (60-99); HDL Cholesterol 46 mg/dL (>40); LDL Cholesterol Calculated 85 mg/dL (<100); Potassium 3.5 mmol/L (3.3-5.1); Sodium 138 mmol/L (135-145); Total Protein 7.5 g/dL (6.5-8.0); Triglycerides 61 mg/dL (<150)
[2024-05-12 12:50] LABS: Estimated Average Glucose 120 mg/dL; Hemoglobin A1C 143.4164 umol/L; Hemoglobin A1c % 5.8 % (<6.0); Total Hemoglobin (HGBA1C) 3642.1507 umol/L
== END 2024-05-12 08:41 | disposition home or self-care (01) ==
LOC: HO.HMGCLDS 08:40
PROVIDERS: PCP Internal Medicine; Visit Provider Internal Medicine
DX: I10 Essential (primary) hypertension (principal); R73.01 Impaired fasting glucose
CPT/HCPCS: 36415; 80053; 80061; 83036; 85025

== ENCOUNTER 2024-05-15 09:26 | Outpatient (AMB) | payer MEDICARE, MEDICAID, SELFPAY ==
[2024-05-15 09:33] VITALS: BP 138/72; PULSE 75; RESP 18; TEMP 36.7; O2SAT 96; BMI 26.4
--- NOTE | 2024-05-15 09:33 | MHC.PC.OV ---
Vital Signs 05/15/24 09:33 Height 6 ft Weight 194 lb 6 oz BMI 26.4 BP 138/72 Blood Pressure Location Lt brachial Position Sitting Respiration 18 Pulse 75 Pulse Source Pulse Oximeter Temp 98.1 F Temp Source Oral Pulse Oximetry (%) 96 Oxygen Delivery Method Room Air Intake Visit Reasons: 6 months f/up Allergies none Allergy (Unknown, Uncoded 05/15/24 09:34) unknown Medication List - Last Reconciled 05/15/24 by Kelly Owusu MD atenolol-chlorthalidone 100-25 mg 1 tab PO DAILY Tobacco use date assessed: 05/15/24 Fall risk assessment: No Falls in past year Last assessed Fall Risk: 05/15/24 Dental Screening Dental Screen Date: 05/15/24 Did you have a dental visit in the last 12 months?: Yes Did you have a dental problem in the last 6 months where you did not have access to dental care?: No Was dental information given to patient?: Patient has dentist HPI 6 months f/up HPI Details History - The patient is a 73-year-old male presenting with routine follow-up and evaluation of leg swelling that he had 3 months ago, blood pressure, and finger cramping. - History of left leg swelling and pain noticed while in [place], resolving post-rest without medical intervention there. No swelling or pain in the leg currently reported. - Recent onset of left hand/finger cramping and tingling during sleep, occurring particularly upon resting on a specific side, indicating possible nerve-related issues. - Blood pressure is well-controlled with home and clinic readings generally in the 120s to 130s; recent clinic reading was 138/72 mmHg. - Identified as prediabetic with a fasting glucose level of 102 mg/dL. - Hemoglobin noted at 13.8 g/dL, indicating minor drop from previous measurements but remains stable. - Patient has been effectively managing blood pressure with Atenolol - Chlorthalidone. Problem List - Essential Hypertension - Prediabetes - Possible Carpal Tunnel Syndrome - History of Leg Swelling - slight anemia Patient Instructions - Continue taking Atenolol - Chlorthalidone as prescribed, once daily. - Follow a balanced diet to manage prediabetes, focusing on reducing intake of foods high in white flour such as pasta, rice, and bread. - Monitor blood pressure at home regularly. - Use a wrist splint during nighttime if finger cramping and tingling continue. - Maintain follow-up appointments and perform blood testing prior to the appointment. - Seek immediate care if swelling in the legs returns or if there is significant pain or discomfort. Review of Systems - General: No fever no chills - Neurological: No headaches no dizziness - Ear nose throat: No sore throat no hearing difficulty no ear pain - Cardiovascular: No syncope, no chest pain, no palpitations - Gastrointestinal: No nausea vomiting or diarrhea - Endocrine: No polyuria polydipsia no heat intolerance - Genitourinary: No dysuria , no blood in urine Physical Exam General: No acute distress HEENT: No acute findings Neck: Supple Respiratory system: Able to talk in full sentences, no audible wheeze cardiovascular: S1-S2 regular in rate and rhythm Gastrointestinal: No pain Extremities: No new findings, previously reported swelling and pain in the left leg between the ankle and calf, currently resolved, no swelling or pain on examination Left hand and finger/wrist with full range of motion without any pain neurovascular intact 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 1. Little interest or pleasure in doing things: not at all 2. Feeling down, depressed, or hopeless: not at all 3. Trouble falling or staying asleep, or sleeping too much: not at all 4. Feeling tired or having little energy: not at all 5. Poor appetite or overeating: not at all 6. Feeling bad about yourself - or that you are a failure or have let yourself or your family down: not at all 7. Trouble concentrating on things, such as reading the newspaper or watching television: not at all 8. Moving or speaking so slowly that other people could have noticed. Or the opposite - being so fidgety or restless that you have been moving around a lot more than usual: not at all 9. Thoughts that you would be better off or of hurting yourself in some way: not at all Total score: 0 Depression Screening Interpretation: Negative Depression Screening Done: Yes 49938 - PHQ-9 Billing: Yes Source: Developed by Drs. Michael Conway, Melissa Simmons, Nima Bonilla and colleagues, with an educational viraj from [employer]. Thrive Questionnaire Date Thrive assessed: 05/15/24 I am a: Patient What is your living situation today?: I choose not to answer this question Within the past 12 months, did the food you bought not last and you didn't have the money to get more?: I choose not to answer this question Within the past 12 months, did you worry whether your food would run out before you got money to buy more?: I choose not to answer this question Do you have trouble paying for medicines?: I choose not to answer this question Do you have trouble getting transportation to medical appointments?: I choose not to answer this question Do you have trouble paying your heating and electricity bill?: I choose not to answer this question Do you have trouble taking care of your child, family member or friend?: I choose not to answer this question Do you have trouble with day-to-day activities such as bathing, preparing meals, shopping, managing finances, etc.?: I choose not to answer this question Are you currently unemployed and looking for a job?: I choose not to answer this question Are you interested in more education?: I choose not to answer this question Please select the resources that you would like help with: None Currently or been in a relationship where the following occur: I choose not to answer THRIVE Score: 0 AUDIT C Alcohol Use Questionnaire (AUDIT-C) 1. How often do you have a drink containing alcohol?: Never 3. How often do you have six or more drinks on one occasion?: Never Total Score: 0 Score Reviewed/Action Taken: Yes ULISSES-7 AMB Questionnaire ULISSES-7 Date ULISSES - 7 assessed: 05/15/24 Feeling nervous, anxious, or on edge: 0 = Not at all Not being able to stop or control worryin = Not at all Worrying too much about different things: 0 = Not at all Trouble relaxin = Not at all Being so restless that it is hard to sit still: 0 = Not at all Becoming easily annoyed or irritable: 0 = Not at all Feeling afraid as if something awful might happen: 0 = Not at all Total ULISSES-7 score (0-4 normal; 5-9 mild; 10-14 moderate; 15-21 severe): 0 Source: Developed by Drs. Michael Conway, Melissa Simmons, Nima Bonilla and colleagues, with an educational viraj from [employer]. ULISSES-7 Assessment Billing ULISSES-7 Assessment Tool: ULISSES-7 Assessment 44637 Physical exam (Primary Care) Vital Signs: Last Vital Signs Temp 98.1 F 05/15/24 09:33 Pulse 75 05/15/24 09:33 Resp 18 05/15/24 09:33 BP 138/72 05/15/24 09:33 Pulse Ox 96 05/15/24 09:33 Oxygen Delivery Method Room Air 05/15/24 09:33 BMI result Body Mass Index 26.4 Tobacco/Smoking Status: Tobacco use Status Tobacco use date assessed 05/15/24 05/15/24 09:34 Patient Tobacco Use Status Never used Tobacco 05/15/24 09:34 e-Cigarette/Vaping Use Never Used 05/15/24 09:34 PHQ-9: PHQ-9 Score PHQ-9: Total score 0 05/15/24 09:34 Depression Screening Interpretation: Negative Thrive Assessment: Date of Thrive Assessment Date Thrive assessed 05/15/24 05/15/24 09:34 Currently or been in a relationship where the following occur: I choose not to answer Coding Level of Care Code Est Pt Level 4 (68168) Complex EM visit Add On G2211 Diagnoses Hypertension, essential I10 Impaired fasting blood sugar R73.01 Carpal tunnel syndrome of left wrist G56.02 Anemia in other chronic diseases classified elsewhere D63.8 Anemia type: other cause Other causes of anemia: chronic disease, other Additional Codes ULISSES-7 Assessment Billing - ULISSES-7 Assessment Tool: ULISSES-7 Assessment 47012 ([id number]) PHQ-9 - 66793 - PHQ-9 Billing: Yes ([id number]) Assessment & Plan Assessment & Plan (1) Hypertension, essential: Code(s): I10 - Essential (primary) hypertension Category: Medical (2) Impaired fasting blood sugar: Code(s): R73.01 - Impaired fasting glucose Category: Medical (3) Carpal tunnel syndrome of left wrist: Code(s): G56.02 - Carpal tunnel syndrome, left upper limb Category: Medical (4) Anemia: Code(s): D64.9 - Anemia, unspecified Category: Medical Qualifiers: Anemia type: other cause Other causes of anemia: chronic disease, other Qualified Code(s): D63.8 - Anemia in other chronic diseases classified elsewhere Plan History - The patient is a 73-year-old male presenting with routine follow-up and evaluation of leg swelling that he had 3 months ago, blood pressure, and finger cramping. - History of left leg swelling and pain noticed while in [place], resolving post-rest without medical intervention there. No swelling or pain in the leg currently reported. - Recent onset of left hand/finger cramping and tingling during sleep, occurring particularly upon resting on a specific side, indicating possible nerve-related issues. - Blood pressure is well-controlled with home and clinic readings generally in the 120s to 130s; recent clinic reading was 138/72 mmHg. - Identified as prediabetic with a fasting glucose level of 102 mg/dL. - Hemoglobin noted at 13.8 g/dL, indicating minor drop from previous measurements but remains stable. - Patient has been effectively managing blood pressure with Atenolol - Chlorthalidone. Problem List - Essential Hypertension - Prediabetes - Possible Carpal Tunnel Syndrome - History of Leg Swelling - slight anemia Patient Instructions - Continue taking Atenolol - Chlorthalidone as prescribed, once daily. - Follow a balanced diet to manage prediabetes, focusing on reducing intake of foods high in white flour such as pasta, rice, and bread. - Monitor blood pressure at home regularly. - Use a wrist splint during nighttime if finger cramping and tingling continue. - Maintain follow-up appointments and perform blood testing prior to the appointment. - Seek immediate care if swelling in the legs returns or if there is significant pain or discomfort. Orders: Orders Hemoglobin A1c 5 Months D64.9 - Anemia, unspecified, G56.02 - Carpal tunnel syndrome, left upper limb, I10 - Essential (primary) hypertension, R73.01 - Impaired fasting glucose Complete Blood Count Auto Diff 5 Months D64.9 - Anemia, unspecified, G56.02 - Carpal tunnel syndrome, left upper limb, I10 - Essential (primary) hypertension, R73.01 - Impaired fasting glucose Lipid Panel 5 Months D64.9 - Anemia, unspecified, G56.02 - Carpal tunnel syndrome, left upper limb, I10 - Essential (primary) hypertension, R73.01 - Impaired fasting glucose Ferritin 5 Months D64.9 - Anemia, unspecified, G56.02 - Carpal tunnel syndrome, left upper limb, I10 - Essential (primary) hypertension, R73.01 - Impaired fasting glucose Comprehensive [place]. Panel Fast 5 Months D64.9 - Anemia, unspecified, G56.02 - Carpal tunnel syndrome, left upper limb, I10 - Essential (primary) hypertension, R73.01 - Impaired fasting glucose Vitamin B12 5 Months D64.9 - Anemia, unspecified, G56.02 - Carpal tunnel syndrome, left upper limb, I10 - Essential (primary) hypertension, R73.01 - Impaired fasting glucose
--- OUTSIDE RECORDS SUMMARY | 2024-05-15 10:29 | XMS_ITS | Clinical Summary ---
Author Organization [facility] Address [address] [place] [address] Care Team Providers Care Moshgiach Name Role Phone Unavailable Primary Care Provider [...] Dental Prophy 08/29/2023 08/26/2022, 01/0 10/2022, 08/25/2021 [id number] ( - season) 2023 Imm-Influenza (#1) 2023 [...] Most Recently Relevant to Health Maintenance Insurance [place] [facility] [place] [address]
--- OUTSIDE RECORDS SUMMARY | 2024-05-15 10:30 | XMS_ITS | Clinical Summary ---
Author Organization [facility] ity Address [address] [place] [address] Care Team Providers Care Design Leader Name Role Phone Ray Padilla MD Primary [...] age to complete this topic Care Teams Design Leader Relationship Specialty Start Date End Date Ray Padilla MD PCP - General Internal Medicine 07/22/16
== END 2024-05-15 11:15 | disposition home or self-care (01) ==
LOC: HO.HMCC 09:27
PROVIDERS: PCP Internal Medicine; Visit Provider Internal Medicine
DX: I10 Essential (primary) hypertension (principal); R73.01 Impaired fasting glucose; G56.02 Carpal tunnel syndrome, left upper limb; D63.8 Anemia in other chronic diseases classified elsewhere

== ENCOUNTER → 2024-05-15 09:26 | Outpatient (BNVA) | payer MEDICARE, MEDICAID, SELFPAY | PROVIDERS: PCP Internal Medicine; Visit Provider Internal Medicine | DX: I10 Essential (primary) hypertension (principal); R73.01 Impaired fasting glucose; G56.02 Carpal tunnel syndrome, left upper limb; D64.9 Anemia, unspecified | CPT/HCPCS: 96127; 99212 ==

== ENCOUNTER 2024-07-20 08:18 | Outpatient (AMB) | payer MEDICARE, MEDICAID, SELFPAY ==
--- OUTSIDE RECORDS SUMMARY | 2024-07-20 08:19 | XMS_ITS | Clinical Summary ---
Author Organization [facility] Address [address] [place] [address] Care Team Providers Care Stable Helper Name Role Phone Unavailable Primary Care Provider Unavailabl e Source Comments PLEASE NOTE, if this patient is a minor, it may be UNLAWFUL to discuss sensitive information that is contained in these records (such as FAMILY PLANNING, MENTAL HEALTH or SUBSTANCE ABUSE) with the minor patient's parent or other person without the patient's specific authorization.[facility] Allergies No known active allergies Medications ibuprofen 600 mg tablet Take 1 Tablet by mouth 4 (four) times daily as needed for pain 20 Tablet 05/07/2021 Active amoxicillin (AMOXIL) 500 mg capsule Take 1 Capsule by mouth 3 (three) times daily 21 Capsule 05/07/2021 Active Active Problems No known active problems Encounters Date Type Department Care Team Description 07/02/2024 9:40 AM EDT Office Visit [facility] [place] [address] Jaymie Lopez Encounter for dental examination and cleaning with abnormal findings (Primary Dx); Abfraction from Last 3 Months Social History Tobacco Use Types Packs/Day Years Used Date Smoking Tobacco: Never Smokeless Tobacco: Never Tobacco Cessation:Counseling Given: Not Answered Social Connections Answer Date Recorded Connectedness 0 [...] Mass Index - - Plan of Treatment Upcoming Encounters Date Type Department Care Team (Late st Contact Info) Description 12/26/2024 9:40 AM EST Office Visit [facility] [address] [place] [address] LopezJackyJaymie Y [address] [place] [address] Health Maintenance Due Date Last Done Comments Hepatitis C Screening 1950 Lipid Screening 1950 Imm-DTaP/Tdap/Td (1 - Tdap) 1969 CT Colonography 06/17/1995 Colonoscopy 06/17/1995 Colorectal Cancer Screening 06/17/1995 FIT/gFOBT 06/17/1995 Fecal DNA 06/17/1995 Flexible Sigmoidoscopy 06/17/1995 Imm-Pneumococcal 65+ (1 of 1 - PCV) 2000 Imm-Zoster, Recombinant (1 of 2) 2000 Falls Prevention 06/17/2015 Hypertension Screening (#1) 03/01/2023 [id number] ( - season) 2023 Imm-Influenza (#1) 2023 Alcohol and Drug Screen 02/22/2024 Depression Annual Screen 02/22/2024 Tobacco Screening 07/02/2025 07/02/2024 Dental BW 07/04/2025 07/02/2024, 08/3 02/2022, 03/01/2022, Additional history exists Dental Examination 07/04/2025 07/02/2024, 0 10/21/2022, 03/01/2022, Additional history exists Dental Perio Charting 07/04/2025 07/02/2024, 023 Dental Prophy 07/04/2025 07/02/2024, 07/0 07/2022, 03/01/2022, Additional history exists Dental FMX/Pano 07/04/2029 07/02/2024 Procedures Procedure Name Priority Date/Time Associated Diagnosis Comments PERIODIC ORAL EVALUATION ESTABLISHED PATIENT Routine 07/02/2024 9:40 AM EDT Encounter for dental examination and cleaning with abnormal findings DENTAL CASE MANAGEMENT - MOTIVATIONAL INTV Routine 07/02/2024 9:40 AM EDT Encounter for dental examination and cleaning with abnormal findings Abfraction PROPHYLAXIS - ADULT Routine 07/02/2024 9 :40 AM EDT Encounter for dental examination and cleaning with abnormal findings Abfraction COMP PERIODONTAL EVALUATION - NEW/EST PATIENT Routine 07/02/2024 9:40 AM EDT Encounter for dental examination and cleaning with abnormal findings INTRAORAL - COMP SERIES OF RADIOGRAPHIC IMAGES Routine 07/02/2024 9:40 AM EDT Encounter for dental examination and cleaning with abnormal findings Abfraction CARIES RISK ASSESSMENT & DOC FINDING HIGH RISK Routine 07/02/2024 9:40 AM EDT Encounter for dental examination and cleaning with abnormal findings Abfraction NUTRITIONAL COUNSELING CONTROL OF DENTAL DISEASE Routine 07/02/2024 9:40 AM EDT Encounter for dental examination and cleaning with abnormal findings Abfraction ORAL HYGIENE INSTRUCTIONS Routine 07/02/2024 9:40 AM EDT Encounter for dental examination and cleaning with abnormal findings Abfraction ORAL CANCER SCREENING Routine 07/02/2024 9:40 AM EDT Encounter for dental examination and cleaning with abnormal findings Abfraction CASE PRESENTATION SUBS DTL & EXTENSIVE TX PLN Routine 07/02/2024 9:40 AM EDT Encounter for dental examination and cleaning with abnormal findings 2 MO AMALGAM - WISDOM (NON BILLABLE) Routine 07/02/2024 12:00 AM EDT 3 MODBL AMALGAM - WISDOM (NON BILLABLE) Routine 07/02/2024 12:00 AM EDT 3 ROOT CANAL - WISDOM (NO BILLABLE) Routine 07/02/2024 12:00 AM EDT from Last 3 Months Insurance [place] [facility] [place] [address]
--- NOTE | 2024-07-20 09:00 | A.OFFPC_ITS ---
Intake Visit Reasons: Personal concerns to discuss Allergies none Allergy (Unknown, Uncoded 05/15/24 09:34) unknown Medication List - Last Reconciled 07/20/24 by Kelly Owusu MD atenolol-chlorthalidone 100-25 mg 1 tab PO DAILY Tobacco use date assessed: 05/15/24 Dental Screening Dental Screen Date: 05/15/24 HPI Personal concerns to discuss HPI Details History - The patient is a 74-year-old male pres enting with low blood pressure and nausea. - The patient's blood pressure recorded at home with a manual pump was 108/60 mmHg with a pulse of 65 bpm, and with an automatic device 106/65 mmHg, and a pulse of 67 bpm. - The patient has been experiencing freq uent lightheadedness, which is often accompanied by nausea. These symptoms have been persistent for over a year. - Last week, the patient experienced sev ere symptoms, including vomiting and dizziness, while returning from dropping his granddaughter at school. - His daughter, an ER nurse, observed th karo significant symptoms and thought he might be having a stroke. - On that day, the patient?s blood press ure dropped to 102 systolic with a heart rate of 53 bpm. - The patient was previously on medicati on, which he stopped five days ago, but his blood pressure remains low. - There is no history of prior cardiolog ist evaluations, but past medical visits documented high blood pressure readings. - The patient's daughter reports that de spite the longstanding nausea and lightheadedness, he does not often vocalize these symptoms. Problem List - Hypotension in setting of hypertensive history - Nausea - light headedness - near syncope Patient Instructions - Attend follow-up appointment with a ca rdiologist to evaluate heart health. have Echo and EKG - Undergo ordered blood tests to investi gate the cause of symptoms. - Monitor blood pressure daily and repor t significant changes or worsening symptoms. - Seek immediate medical care if experie nces severe dizziness, prolonged nausea, or any new or worsening symptoms. Review of Systems - General: No fever no chills - Ear nose throat: No sore throat no hearing difficulty no ear pain - Cardiovascular: no chest pain, no palpitations - Gastrointestinal: No diarrhea - Endocrine: No polyuria polydipsia no heat intolerance - Genitourinary: No dysuria , no blood in urine PFSH Social History Housing: House Alcohol intake: never Patient Tobacco Use Status: Never used Tobacco e-Cigarette/Vaping Use: Never Used Second Hand Smoke Exposure: No Current occupational status: retired Cognitive needs: No Hearing needs: No Vision needs: Yes Questionnaire Thrive Questionnaire Date Thrive assessed: 05/15/24 ULISSES-7 AMB Questionnaire ULISSES-7 Date ULISSES - 7 assessed: 05/15/24 Source: Developed by Drs. Michael Conway, Melissa Simmons, Nima Bonilla and colleagues, with an educational viraj from [employer]. Physical exam (Primary Care) Tobacco/Smoking Status: Tobacco use Status Tobacco use date assessed 05/15/24 07/20/24 09:00 Patient Tobacco Use Status Never used Tobacco 07/20/24 09:00 e-Cigarette/Vaping Use Never Used 07/20/24 09:00 Thrive Assessment: Date of Thrive Assessment Date Thrive assessed 05/15/24 07/20/24 09:00 Telehealth Telehealth Telehealth Platform: [employer] Location of provider rendering services: practice address Location of patient: address on file Patient Identification confirmed using: Name, : Yes Telehealth method: video Patient verbally consented to treatment: Yes Patient verbally consented to billing insurance company: Yes Patient informed of any privacy concerns related to visit: Yes Coding Level of Care Code Tele Est Pt Level 4 (39315) Diagnoses Near syncope R55 Other specified hypotension I95.89 Hypotension type: other hypotension type Nausea and vomiting, unspecified vomiting type R11.2 Vomiting type: unspecified Time Spent (min) 30 Comment visit with patient and his daughter Assessment & Plan Assessment & Plan (1) Near syncope: Code(s): R55 - Syncope and collapse Category: Medical (2) Hypotension: Code(s): I95.9 - Hypotension, unspecified Category: Medical Qualifiers: Hypotension type: other hypotension type Qualified Code(s): I95.89 - Other hypotension (3) Nausea & vomiting: Code(s): R11.2 - Nausea with vomiting, unspecified Category: Medical Qualifiers: Vomiting type: unspecified Qualified Code(s): R11.2 - Nausea with vomiting, unspecified Plan History - The patient is a 74-year-old male presenting with low blood pressure and nausea. - The patient's blood pressure recorded at home with a manual pump was 108/60 mmHg with a pulse of 65 bpm, and with an automatic device 106/65 mmHg, and a pulse of 67 bpm. - The patient has been experiencing frequent lightheadedness, which is often accompanied by nausea. These symptoms have been persistent for over a year. - Last week, the patient experienced severe symptoms, including vomiting and dizziness, while returning from dropping his granddaughter at school. - His daughter, an ER nurse, observed these significant symptoms and thought he might be having a stroke. - On that day, the patient?s blood pressure dropped to 102 systolic with a heart rate of 53 bpm. - The patient was previously on medication, which he stopped five days ago, but his blood pressure remains low. - There is no history of prior sustainable products marketing manager evaluations, but past medical visits documented high blood pressure readings. - The patient's daughter reports that despite the longstanding nausea and lightheadedness, he does not often vocalize these symptoms. Problem List - Hypotension in setting of hypertensive history - Nausea - light headedness - near syncope Patient Instructions - Attend follow-up appointment with a sustainable products marketing manager to evaluate heart health. have Echo and EKG - Undergo ordered blood tests to investigate the cause of symptoms. - Monitor blood pressure daily and report significant changes or worsening symptoms. - Seek immediate medical care if experiences severe dizziness, prolonged nausea, or any new or worsening symptoms. Orders: Orders Comprehensive Met. Panel Today I95.9 - Hypotension, unspecified, R11.2 - Nausea with vomiting, unspecified, R51.9 - Headache, unspecified B Type Natriuretic Peptide Today I95.9 - Hypotension, unspecified, R11.2 - Nausea with vomiting, unspecified, R51.9 - Headache, unspecified ECG 12 lead EKG Today I95.9 - Hypotension, unspecified Complete Blood Count Auto Diff Today I95.9 - Hypotension, unspecified, R11.2 - Nausea with vomiting, unspecified, R51.9 - Headache, unspecified CA echo transthoracic complete Today I95.9 - Hypotension, unspecified Referrals Cardiology Referral I95.9 - Hypotension, unspecified Medications: On Hold atenolol-chlorthalidone 100-25 mg Hold Comment: Doctor's Order 1 tab PO DAILY 90 tabs 0RF Blood pressure
== END 2024-07-20 09:14 | disposition home or self-care (01) ==
LOC: HO.HMCC 08:18
PROVIDERS: PCP Internal Medicine; Visit Provider Internal Medicine
DX: R55 Syncope and collapse (principal); I95.89 Other hypotension; R11.2 Nausea with vomiting, unspecified

== ENCOUNTER → 2024-07-20 08:18 | Outpatient (BNVA) | payer MEDICARE, MEDICAID, SELFPAY | PROVIDERS: PCP Internal Medicine; Visit Provider Internal Medicine | DX: Z13.89 Encounter for screening for other disorder (principal) ==

== ENCOUNTER 2024-08-16 13:44 | Outpatient (AMB) | payer MEDICARE, MEDICAID, SELFPAY ==
--- NOTE | 2024-08-16 13:53 | MHC.OFFVIS ---
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 It does not have any known history of any coronary disease or myocardial infarction or cardiomyopathy or in fact anything of cardiac nature. It seems that he has had hypertension for the last few years. He was taking atenolol/chlorthalidone 100/25 mg till about a month ago. Apparently atenolol was only medication but over the last couple of years he has also been on the diuretic. Main concerns all that for the last few months he has just been dizzy randomly. No specific provoking factors and he can just happen any time. It does not appear to be clearly orthostatic. Sometimes, along with the dizziness he also feels nauseous and has also vomited. One occasion, near-syncope. After that, they decided to just stopped the blood pressure medication completely and see what happens. It seems that he just had one episode within the 1st few days after stopping it but then he has been fine since. Reviewing the diary, on one occasion when he had the actual event- blood pressure was in the lower 100s with a heart rate in the 50s. After stopping the blood pressure medication, most blood pressures are in the normal range and very rarely in the 140s. He does not have any other complaints like angina or shortness of breath. [facility] Medical History (Updated 08/16/24 @ 15:14 by Jarret Rueda MD) Hypertension, essential Family History Mother No problems noted. Father No problems noted. Social History Housing: House Alcohol intake: never Patient Tobacco Use Status: Never used Tobacco e-Cigarette/Vaping Use: Never Used Second Hand Smoke Exposure: No Current occupational status: retired Cognitive needs: No Hearing needs: No Vision needs: Yes Review of Systems Const Denies weakness ENT Denies dizziness Card Denies chest pain, Denies chest pain with activity, Denies syncope, Denies rapid heart rate, Denies pedal edema, Denies edema, Denies leg edema, Denies lightheadedness, Denies palpitations, Denies dyspnea, Denies dyspnea on exertion and Denies orthopnea Resp Denies cough, Denies dyspnea and Denies dyspnea on exertion GI Denies hematochezia and Denies change in stool character Musc Denies abnormal gait, Reports arthralgias, Denies muscle cramps, Denies muscle weakness, Denies numbness, Denies radiating pain into limb and Denies tingling Neuro Denies abnormal gait, Denies dizziness, Denies syncope, Denies numbness, Denies tingling and Denies weakness Endo Denies palpitations Physical Exam Vital Signs: Last Vital Signs Pulse 85 08/16/24 13:54 BP 140/80 H 08/16/24 13:54 BMI result Body Mass Index 26.6 Const General: comfortable and no acute distress Orientation/consciousness: patient oriented x3 HEENT Other: Unremarkable Head: Yes normal to inspection Neck Neck: Yes normal visual inspection Chest Chest palpation & inspection: normal inspection of the chest Resp Auscultation: clear to auscultation bilaterally Cardio Palpation: normal PMI Heart sounds: S1 normal heart sound present, S2 normal heart sound present, no gallops, no murmurs and no rubs GI Palpation (GI): Soft to palpation Back/Spine/Pelvis Other: unremarkable Skin General skin exam: no rashes or lesions noted Neuro General: patient oriented x3 Extrem General: Yes normal to inspection Psych Mental Status: mental status grossly normal Office Procedures EKG Details: EKG with underlying sinus rhythm at 85/Min; rightward axis; left ventricular hypertrophy with QRS widening and repolarization changes; normal IA; prolonged QT noted, but due to the prolonged QRS. [id number], Complete Assessment & Plan Assessment & Plan (1) Hypertension, essential: Code(s): I10 - Essential (primary) hypertension Category: Medical (2) Hypotension: Code(s): I95.9 - Hypotension, unspecified Category: Medical Qualifiers: Hypotension type: other hypotension type Qualified Code(s): I95.89 - Other hypotension (3) Near syncope: Code(s): R55 - Syncope and collapse Category: Medical Plan Suspect dizzy events probably related to low blood pressure in the setting of taking antihypertensive therapy. Patient has been off atenolol/chlorthalidone for the last month and mostly symptom-free. Hence low blood pressure it may indeed be the reason for his symptoms. We will continue to hold the medication and we can monitor for any recurrences. His EKG shows left ventricular hypertrophy pattern which clearly indicates longstanding hypertension. We will get an echocardiogram for cardiac function. Carotid Dopplers can be completed. Advised to stay well hydrated. We will see him in follow-up in a few weeks' time. Discussed with family who came for appointment. Discussion Notes I discussed with the patient the plan to perform a heart ultrasound and carotid doppler to investigate the cause of dizziness. We talked about the importance of monitoring blood pressure and staying hydrated. I advised the patient to report any further episodes of dizziness or other concerning symptoms. Patient was informed and verbally consented to the use of an ambient scribe for clinic note documentation during this visit. Orders: Orders US carotid duplex BI Today I10 - Essential (primary) hypertension, I65.23 - Occlusion and stenosis of bilateral carotid arteries CA echo transthoracic complete Today I10 - Essential (primary) hypertension Patient Instructions: - Monitor your blood pressure regularly. - Stay hydrated by drinking plenty of water. - Report any further episodes of dizziness or other symptoms to your doctor. Coding Level of Care Code New Pt Level 4 (27063) Complex EM visit Add On G2211 Diagnoses Hypertension, essential I10 Other specified hypotension I95.89 Hypotension type: other hypotension type Near syncope R55 CPT Codes EKG - CPT: [id number]-[id number], Complete ([id number])
[2024-08-16 13:54] VITALS: BP 140/80; PULSE 85; BMI 26.6
--- OUTSIDE RECORDS SUMMARY | 2024-08-16 16:35 | XMS_ITS | Clinical Summary ---
Author Organization [facility] Address [address] [place] [address] Care Team Providers Care Warehouse Associate Name Role Phone Unavailable Primary Care Provider [...] Description 07/02/2024 9:40 AM EDT Office Visit [id number] [place] [address] Jaymie Lopez from Last 3 Months Social History Tobacco [...] Description 12/26/2024 9:40 AM EST Office Visit [facility] [address] [place] [id number] Jaymie Lopez [address] [place] [address] Health Maintenance Due Date Last Done Comments Hepatitis C Screening 1950 Lipid Screening 1950 Imm-DTaP/Tdap/Td (1 - Tdap) 1969 CT Colonography 06/17/1995 Colonoscopy 06/17/1995 Colorectal Cancer Screening 06/17/1995 FIT/gFOBT 06/17/1995 Fecal DNA 06/17/1995 Flexible Sigmoidoscopy 06/17/1995 Imm-Pneumococcal 50+ (1 of 1 - PCV) 2000 Imm-Zoster, Recombinant (1 of 2) 2000 Falls Prevention 06/17/2015 Hypertension Screening (#1) 03/01/2023 [id number] (1 - season) 2023 Alcohol and Drug Screen 02/22/2024 Depression Annual Screen 02/22/2024 Imm-Influenza (Season Ended) 2024 Tobacco Screening 07/02/2025 07/02/2024 Dental BW 07/04/2025 [...] AM EDT from Last 3 Months [place] [facility] [place] [id number]
== END 2024-08-16 14:23 | disposition home or self-care (01) ==
LOC: HO.HCS 13:44
PROVIDERS: PCP Internal Medicine; Visit Provider Internal Medicine
DX: I10 Essential (primary) hypertension (principal); I95.89 Other hypotension; R55 Syncope and collapse
CPT/HCPCS: 93010; 99204; G2211

== ENCOUNTER → 2024-08-16 13:44 | Outpatient (BNVA) | payer MEDICARE, MEDICAID, SELFPAY | PROVIDERS: PCP Internal Medicine; Visit Provider Internal Medicine | DX: I10 Essential (primary) hypertension (principal); I95.89 Other hypotension; R55 Syncope and collapse; I25.2 Old myocardial infarction; R94.31 Abnormal electrocardiogram [ECG] [EKG] | CPT/HCPCS: 93005; 99202 ==

== ENCOUNTER 2024-08-22 14:39 | Outpatient (REF) | payer MEDICARE, MEDICAID, SELFPAY ==
--- NOTE | ~2024-08-22 | XR_ITS ---
EXAMINATION: XR LUMBOSACRAL SPINE CLINICAL INFORMATION: M54.16 - Radiculopathy, lumbar region COMPARISON: None available. TECHNIQUE: Three views of the lumbosacral spine. FINDINGS: There are 5 nonrib-bearing lumbar segments with the suture rows in the T12. There is 16 degrees dextroscoliosis. There is diffuse mild to moderate disc space narrowing, endplate osteophytes, facet sclerosis and osteophytes, consistent with degenerative change. There is subtle retrolisthesis at L2-3. XR/XR lumbar spine 2-3V IMPRESSION: Degenerative changes and mild dextroscoliosis. Electronically signed by: Edmund Nguyen MD 08/22/2024 05:38 PM EDT
== END 2024-08-22 14:40 | disposition home or self-care (01) ==
LOC: HO.HMGCX 14:39
PROVIDERS: PCP Internal Medicine; Visit Provider Internal Medicine
DX: M54.16 Radiculopathy, lumbar region (principal)
CPT/HCPCS: 72100; 99212

== ENCOUNTER 2024-08-22 14:39 | Outpatient (AMB) | payer MEDICARE, MEDICAID, SELFPAY ==
--- NOTE | 2024-08-22 14:41 | A.OFFPC_ITS ---
Vital Signs 08/22/24 14:43 Height 6 ft Weight 199 lb BMI 27.0 BP 146/80 H Blood Pressure Location Lt brachial Position Sitting Respiration 17 Pulse 78 Pulse Source Pulse Oximeter Temp 98.0 F Temp Source Oral Pulse Oximetry (%) 99 Oxygen Delivery Method Room Air Intake Visit Reasons: LT leg pain and swelling Allergies NSAIDS (Non-Steroidal Anti-Inflamma Adverse Reaction (Verified 08/22/24 14:44) Nausea and Vomiting none Allergy (Unknown, Uncoded 05/15/24 09:34) unknown Medication List - Last Reconciled 08/22/24 by Kelly Owusu MD No Known Home Meds Tobacco use date assessed: 08/22/24 Fall risk assessment: No Falls in past year Last assessed Fall Risk: 08/22/24 Dental Screening Dental Screen Date: 08/22/24 Did you have a dental visit in the last 12 months?: Yes Did you have a dental problem in the last 6 months where you did not have access to dental care?: No Was dental information given to patient?: Patient has dentist HPI LT leg pain and swelling HPI Details - The patient is a 74-year-old male pres enting with leg pain. - The pain begins from the back, specifi hannah the hip area, left, radiating downwards to the foot. - The patient describes the pain as sore ness and a burning sensation, with the burning reaching a severity of 7 out of 10, escalating to 9 around the ankle. - The pain has persisted for approximate ly 3 to 4 weeks with a prior occurrence in January, lasting until March. - Aggravating factors include walking an d standing, while laying flat provides relief. - Despite the discomfort, there is no he aviness or significant weakness in the leg. - The patient denies any back pain but e xperiences stress in the back occasionally. - Previous treatment attempts included r est and avoidance of exacerbating activities. Medical History: - Allergy to nonsteroidal anti-inflammat ory drugs (NSAIDs) due to stomach upset and nausea. - History of two similar episodes of leg pain, the first occurring in January last year. Social History: - The patient regularly engages in exerc ise using a stationary bike, typically 3 to 4 times a week, which has been halted due to the current pain. Problem List - Leg pain - Allergy to NSAIDs - Lumbar radiculopathy Left Patient Instructions - Take prednisone as prescribed with zachary d to reduce inflammation and pressure on the nerve. Medrol Dosepak sent - Schedule and complete an x-ray as dire cted. - Be cautious regarding activity levels; rest as needed. - Consider gabapentin 100 mg for pain ma nagement if symptoms persist, and monitor for side effects such as drowsiness. Up to 2 times a day - Ensure safety at [facility], to prevent falls; use appropriate lighting. Review of Systems - General: No fever no chills - Neurological: No headaches no dizziness - Ear nose throat: No sore throat no hearing difficulty no ear pain - Cardiovascular: No syncope, no chest pain, no palpitations - Gastrointestinal: No nausea vomiting or diarrhea - Endocrine: No polyuria polydipsia no heat intolerance - Genitourinary: No dysuria , no blood in urine Physical Exam General: No acute distress HEENT: No acute findings Neck: Supple Respiratory system: Able to talk in full sentences, no audible wheeze Cardiovascular: S1-S2 regular in rate and rhythm Gastrointestinal: No pain Back: No pain with percussion 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 Father No problems noted. Social History Housing: House Alcohol intake: never Patient Tobacco Use Status: Never used Tobacco e-Cigarette/Vaping Use: Never Used Second Hand Smoke Exposure: No Current occupational status: retired Cognitive needs: No Hearing needs: No Vision needs: Yes Questionnaire Thrive Questionnaire Date Thrive assessed: 05/15/24 I am a: Patient What is your living situation today?: I choose not to answer this question Within the past 12 months, did the food you bought not last and you didn't have the money to get more?: I choose not to answer this question Within the past 12 months, did you worry whether your food would run out before you got money to buy more?: I choose not to answer this question Do you have trouble paying for medicines?: I choose not to answer this question Do you have trouble getting transportation to medical appointments?: I choose not to answer this question Do you have trouble paying your heating and electricity bill?: I choose not to answer this question Do you have trouble taking care of your child, family member or friend?: I choose not to answer this question Do you have trouble with day-to-day activities such as bathing, preparing meals, shopping, managing finances, etc.?: I choose not to answer this question Are you currently unemployed and looking for a job?: I choose not to answer this question Are you interested in more education?: I choose not to answer this question Please select the resources that you would like help with: None Currently or been in a relationship where the following occur: I choose not to answer THRIVE Score: 0 ULISSES-7 AMB Questionnaire ULISSES-7 Date ULISSES - 7 assessed: 05/15/24 Source: Developed by Drs. Michael Conway, Melissa Simmons, Nima Bonilla and colleagues, with an educational viraj from [employer]. Physical exam (Primary Care) Vital Signs: Last Vital Signs Temp 98.0 F 08/22/24 14:43 Pulse 78 08/22/24 14:43 Resp 17 08/22/24 14:43 BP 146/80 H 08/22/24 14:43 Pulse Ox 99 08/22/24 14:43 Oxygen Delivery Method Room Air 08/22/24 14:43 BMI result Body Mass Index 27.0 Tobacco/Smoking Status: Tobacco use Status Tobacco use date assessed 08/22/24 08/22/24 14:44 Patient Tobacco Use Status Never used Tobacco 08/22/24 14:43 e-Cigarette/Vaping Use Never Used 08/22/24 14:43 Thrive Assessment: Date of Thrive Assessment Date Thrive assessed 05/15/24 08/22/24 14:43 Currently or been in a relationship where the following occur: I choose not to answer Coding Level of Care Code Est Pt Level 3 (85642) Diagnoses Left lumbar radiculitis M54.16 Assessment & Plan Assessment & Plan (1) Left lumbar radiculitis: Code(s): M54.16 - Radiculopathy, lumbar region Category: Medical Plan - The patient is a 74-year-old male presenting with leg pain. - The pain begins from the back, specifically the hip area, left, radiating downwards to the foot. - The patient describes the pain as soreness and a burning sensation, with the burning reaching a severity of 7 out of 10, escalating to 9 around the ankle. - The pain has persisted for approximately 3 to 4 weeks with a prior occurrence in January, lasting until March. - Aggravating factors include walking and standing, while laying flat provides relief. - Despite the discomfort, there is no heaviness or significant weakness in the leg. - The patient denies any back pain but experiences stress in the back occasionally. - Previous treatment attempts included rest and avoidance of exacerbating activities. Medical History: - Allergy to nonsteroidal anti-inflammatory drugs (NSAIDs) due to stomach upset and nausea. - History of two similar episodes of leg pain, the first occurring in January last year. Social History: - The patient regularly engages in exercise using a stationary bike, typically 3 to 4 times a week, which has been halted due to the current pain. Problem List - Leg pain - Allergy to NSAIDs - Lumbar radiculopathy Left Patient Instructions - Take prednisone as prescribed with food to reduce inflammation and pressure on the nerve. Medrol Dosepak sent - Schedule and complete an x-ray as directed. - Be cautious regarding activity levels; rest as needed. - Consider gabapentin 100 mg for pain management if symptoms persist, and monitor for side effects such as drowsiness. Up to 2 times a day - Ensure safety at home, especially at night, to prevent falls; use appropriate lighting. Orders: Orders XR lumbar spine 2-3V Today M54.16 - Radiculopathy, lumbar region Medications: New methylprednisolone (Medrol (Joe)) PO PER PKG DIR 21 ea 0RF 6 days gabapentin 100 mg PO BEDTIME 60 caps 0RF
[2024-08-22 14:43] VITALS: BP 146/80; PULSE 78; RESP 17; TEMP 36.7; O2SAT 99; BMI 27.0
--- OUTSIDE RECORDS SUMMARY | 2024-08-22 15:05 | XMS_ITS | Clinical Summary ---
Author Organization [facility] ity Address [address] [place] [address] Care Team Providers Care Senior Python Developer Name Role Phone Ray Padilla MD Primary [...] 2000 Zoster Vaccines (1 of 2) 2000 Cholesterol Screening (Lipid Panel) 01/19/2022 Colorectal Cancer Screening: Colonoscopy 01/19/2022 Depression Screening 01/19/2022 Falls Risk Assessment 01/19/2022 Hepatitis C Screening 01/19/2022 Social Influencers of Health Screening 01/19/2022 DTaP,Tdap,and Td Vaccines (2 - Td or Tdap) 08/11/2022 08/11/2012 COVID-19 Vaccine ( - 2023-2 5 season) 2023 Influenza Vaccine (Season Ended) 2024 RSV Immunization Adult Patie nts (1 - 1-dose 75+ series) 2025 HIB [...] age to complete this topic Meningococcal B Vaccine Aged Out No l onger eligible based on patient's age to complete this topic RSV Immunization Patients Un cat 20 months Aged Out No longer eligible b ased on patient's age to complete this topic Varicella Vaccines Aged Out No longer eligible based on patient's age to complete this topic Care Teams Senior Python Developer Relationship Specialty Start Date End Date Ray Padilla MD PCP - General Internal Medicine 07/22/16
--- OUTSIDE RECORDS SUMMARY | 2024-08-22 15:05 | XMS_ITS | Clinical Summary ---
Author Organization [facility] Address [address] [place] [address] Care Team Providers Care Plumbing Instructor Name Role Phone Unavailable Primary Care Provider [...] Description 07/02/2024 9:40 AM EDT Office Visit [id number] [place] [address] Jaymie Lopez from Last 3 [...] Description 12/26/2024 9:40 AM EST Office Visit [facility] [address] [place] [phone] Jaymie Lopez [address] [place] [address] Health Maintenance Due Date Last Done Comments Hepatitis C Screening 1950 Lipid Screening 1950 Imm-DTaP/Tdap/Td (1 - Tdap) 1969 CT Colonography 06/17/1995 Colonoscopy 06/17/1995 Colorectal Cancer Screening 06/17/1995 FIT/gFOBT 06/17/1995 Fecal DNA 06/17/1995 Flexible Sigmoidoscopy 06/17/1995 Imm-Pneumococcal 50+ (1 of 1 - PCV) 2000 Imm-Zoster, Recombinant (1 of 2) 2000 Falls Prevention 06/17/2015 Hypertension Screening (#1) 03/01/2023 [id number] (1 - season) 2023 Alcohol and Drug [...] AM EDT from Last 3 Months Insurance [place]ENT[place] INCLUDES THE [facility] [place] [id number]
== END 2024-08-22 15:16 | disposition home or self-care (01) ==
LOC: HO.HMCC 14:40
PROVIDERS: PCP Internal Medicine; Visit Provider Internal Medicine
DX: M54.16 Radiculopathy, lumbar region (principal)

== ENCOUNTER → 2024-08-22 15:07 | Outpatient (BNV) | payer MEDICARE, MEDICAID, SELFPAY | PROVIDERS: PCP Internal Medicine; Visit Provider Radiology Diagnostic Radiology | DX: M54.16 Radiculopathy, lumbar region (principal) | CPT/HCPCS: 72100 ==

== ENCOUNTER 2024-08-30 08:23 | Outpatient (AMB) | payer MEDICARE, MEDICAID, SELFPAY ==
--- OUTSIDE RECORDS SUMMARY | 2024-08-30 08:35 | XMS_ITS | Clinical Summary ---
Author Organization [facility] ity Address [address] [place] [address] Care Team Providers Care Cable Tv Installer Name Role Phone Ray Padilla MD Primary [...] 2023-2 5 season) 2023 Influenza Vaccine (#1) 2024 RSV Immunization Adult Patie nts (1 [...] age to complete this topic Care Teams Cable Tv Installer Relationship Specialty Start Date End Date Ray Padilla MD PCP - General Internal Medicine 07/22/16
--- OUTSIDE RECORDS SUMMARY | 2024-08-30 08:35 | XMS_ITS | Clinical Summary ---
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 Name Role Phone Unavailable Primary Care Provider [...] Description 07/02/2024 9:40 AM EDT Office Visit [id number] [place] [phone] Jaymie Lopez from Last 3 [...] Description 12/26/2024 9:40 AM EST Office Visit [facility] [address] [place] [phone] Jaymie Lopez [address] [place] [address] Health Maintenance Due Date Last Done Comments Hepatitis C Screening 1950 Lipid Screening 1950 Imm-DTaP/Tdap/Td (1 - Tdap) 1969 CT Colonography 06/17/1995 Colonoscopy 06/17/1995 Colorectal Cancer Screening 06/17/1995 FIT/gFOBT 06/17/1995 Fecal DNA 06/17/1995 Flexible Sigmoidoscopy 06/17/1995 Imm-Pneumococcal 50+ (1 of 1 - PCV) 2000 Imm-Zoster, Recombinant (1 of 2) 2000 Falls Prevention 06/17/2015 Hypertension Screening (#1) 03/01/2023 [id number] (1 - season) 2023 Alcohol and Drug Screen 02/22/2024 Depression Annual Screen 02/22/2024 Imm-Influenza (#1) 2024 Tobacco Screening 07/02/2025 07/02/2024 Dental BW [...] AM EDT from Last 3 Months Insurance [place] MEDICAID DENTAL [facility] [place] [id number]
--- NOTE | 2024-08-30 09:52 | MHC.PC.OV ---
Intake Visit Reasons: general health Allergies NSAIDS (Non-Steroidal Anti-Inflamma Adverse Reaction (Verified 08/22/24 14:44) Nausea and Vomiting none Allergy (Unknown, Uncoded 05/15/24 09:34) unknown Medication List - Last Reconciled 08/30/24 by Kelly Owusu MD gabapentin 100 mg PO BEDTIME methylprednisolone (Medrol (Joe)) PO PER PKG DIR 6 days Tobacco use date assessed: 08/22/24 Dental Screening Dental Screen Date: 08/22/24 HPI general health HPI Details History - The patient is a 74-year-old male presenting with lumbar spine pain radiating to the legs. - Patient reports that the pain has been severe, described as shooting down into the leg and extending to the ankle. - it has been persistent and not relieved by current medications. - Current medication includes gabapentin 100 mg three times a day, which has not significantly alleviated the pain. - Described pain severity as between 8 to 9 on an unspecified scale, indicating significant discomfort. - There is an absence of significant drowsiness from gabapentin usage. - Pain worsens with current level of medication, suggesting suboptimal management. - difficulty ambulating and getting up from sitting position see my last note for more details Medications: - Gabapentin, 100 mg three times daily, for nerve pain management. Social History: - Patient has a daughter who is involved in his care, as she was present during the consultation. Problem List - Lumbar Radiculopathy Left more than right Patient Instructions - Schedule and undergo an MRI to further evaluate the lumbar spine. - Continue taking gabapentin as prescribed. - Dosage adjustment for gabapentin: increase to 300 mg at night, with 100 mg in the morning and afternoon. - Start taking tramadol up to twice a day for additional pain relief. - Be aware tramadol may cause constipation; take a laxative if needed. Review of Systems - General: No fever no chills - Neurological: No headaches no dizziness - Ear nose throat: No sore throat no hearing difficulty no ear pain - Cardiovascular: No syncope, no chest pain, no palpitations - Gastrointestinal: No nausea vomiting or diarrhea [facility] Medical History Hypertension, essential Family History Mother No problems noted. Father No problems noted. Social History Housing: House Alcohol intake: never Patient Tobacco Use Status: Never used Tobacco e-Cigarette/Vaping Use: Never Used Second Hand Smoke Exposure: No Current occupational status: retired Cognitive needs: No Hearing needs: No Vision needs: Yes Questionnaire Thrive Questionnaire Date Thrive assessed: 05/15/24 ULISSES-7 AMB Questionnaire ULISSES-7 Date ULISSES - 7 assessed: 05/15/24 Source: Developed by Drs. Michael Conway, Melissa Simmons, Nima Bonilla and colleagues, with an educational viraj from [employer]. Physical exam (Primary Care) Tobacco/Smoking Status: Tobacco use Status Tobacco use date assessed 08/22/24 08/30/24 09:53 Patient Tobacco Use Status Never used Tobacco 08/30/24 09:53 e-Cigarette/Vaping Use Never Used 08/30/24 09:53 Thrive Assessment: Date of Thrive Assessment Date Thrive assessed 05/15/24 08/30/24 09:53 Telehealth Telehealth Telehealth Platform: [employer] Location of provider rendering services: practice address Location of patient: address on file Patient Identification confirmed using: Name, : Yes Telehealth method: video Patient verbally consented to treatment: Yes Patient verbally consented to billing insurance company: Yes Patient informed of any privacy concerns related to visit: Yes Minutes spent on Phone/Video with Pt.: 16 Coding Level of Care Code Tele Est Pt Level 3 (47970) Diagnoses Left lumbar radiculitis M54.16 Pain management R52 Assessment & Plan Assessment & Plan (1) Left lumbar radiculitis: Code(s): M54.16 - Radiculopathy, lumbar region Category: Medical (2) Pain management: Code(s): R52 - Pain, unspecified Category: Medical Plan History - The patient is a 74-year-old male presenting with lumbar spine pain radiating to the legs. - Patient reports that the pain has been severe, described as shooting down into the leg and extending to the ankle. - it has been persistent and not relieved by current medications. - Current medication includes gabapentin 100 mg three times a day, which has not significantly alleviated the pain. - Described pain severity as between 8 to 9 on an unspecified scale, indicating significant discomfort. - There is an absence of significant drowsiness from gabapentin usage. - Pain worsens with current level of medication, suggesting suboptimal management. - difficulty ambulating and getting up from sitting position see my last note for more details Medications: - Gabapentin, 100 mg three times daily, for nerve pain management. Social History: - Patient has a daughter who is involved in his care, as she was present during the consultation. Problem List - Lumbar Radiculopathy Left more than right Patient Instructions - Schedule and undergo an MRI to further evaluate the lumbar spine. - Continue taking gabapentin as prescribed. - Dosage adjustment for gabapentin: increase to 300 mg at night, with 100 mg in the morning and afternoon. - Start taking tramadol up to twice a day for additional pain relief. - Be aware tramadol may cause constipation; take a laxative if needed. Orders: Orders MR lumbar spine wo con Today M54.16 - Radiculopathy, lumbar region Medications: New tramadol 50 mg PO BID PRN 60 tabs 0RF pain 30 days gabapentin 300 mg PO BEDTIME 90 caps 0RF back pain 90 days
== END 2024-08-30 09:58 | disposition home or self-care (01) ==
LOC: HO.HMCC 08:23
PROVIDERS: PCP Internal Medicine; Visit Provider Internal Medicine
DX: M54.16 Radiculopathy, lumbar region (principal)

== ENCOUNTER 2024-09-08 15:10 | Outpatient (REF) | payer MEDICARE, MEDICAID, SELFPAY ==
--- NOTE | ~2024-09-08 | MR_ITS ---
CLINICAL HISTORY: M54.16 - Radiculopathy, lumbar region --- Additional Notes or Special Instructions: Patient is in Pain, Pain going down both legs, feeling weakness in legs as MR of the lumbar spine without contrast Comparison: CR/SR - XR LUMBAR SPINE 2-3 VIEWS - 08/22/24 15:21 EDT Findings: Mild levocurvature with the apex at L3. 3 mm anterolisthesis of L5 on S1. Multilevel Modic type 2 change which is most prominent at L4/L5. Trace amount of modic type 1 change, most prominent at L3/L4 and L4/L5. No cord expansion or abnormal signal intensity. The conus medullaris terminates at T12/L1, which is normal. The cauda equina is unremarkable. Left renal parapelvic cyst. L1/L2: 4 mm broad-based disc bulge. Moderate facet joint and ligamentum flavum hypertrophy. Severe central spinal canal stenosis. Moderate right and severe left lateral recess stenosis. Mild right and moderate left foraminal stenosis. L2/L3: 5 mm broad-based disc bulge. Moderate facet joint and ligamentum flavum hypertrophy. Severe central spinal canal stenosis. Moderate right and severe left lateral recess stenosis. No right and moderate to severe left foraminal stenosis. L3/L4: 5 mm broad-based disc bulge. Moderate to severe facet joint and ligamentum flavum hypertrophy. Severe central spinal canal stenosis. Severe bilateral lateral recess stenosis. No foraminal stenosis. L4/L5: 5 mm broad-based disc bulge. Severe facet joint and ligamentum flavum hypertrophy. Severe central spinal canal stenosis. Severe bilateral lateral recess stenosis. Severe right and moderate left foraminal stenosis. L5/S1: Mild uncovering of the disc. 7 mm left paracentral disc protrusion. Severe facet joint and ligamentum flavum hypertrophy. Moderate to severe central canal stenosis. Severe bilateral lateral recess stenosis. Moderate bilateral foraminal stenosis. Impression: No acute findings. Marked, severe multilevel degenerative change, detailed above. This document has been electronically signed by: Nita Morfin MD on 09/11/2024 22:34:00
== END 2024-09-08 15:11 | disposition home or self-care (01) ==
LOC: HO.MRI 15:10
PROVIDERS: PCP Internal Medicine; Visit Provider Internal Medicine
DX: M54.16 Radiculopathy, lumbar region (principal)
CPT/HCPCS: 72148

== ENCOUNTER → 2024-09-08 15:25 | Outpatient (BNV) | payer MEDICARE, MEDICAID, SELFPAY | PROVIDERS: PCP Internal Medicine; Visit Provider Radiology Diagnostic Radiology | DX: M51.360 Other intervertebral disc degeneration, lumbar region with discogenic back pain only (principal) | CPT/HCPCS: 72148 ==

== ENCOUNTER 2024-09-13 08:21 | Outpatient (AMB) | payer MEDICARE, MEDICAID, SELFPAY ==
--- OUTSIDE RECORDS SUMMARY | 2024-09-13 08:37 | XMS_ITS | Clinical Summary ---
Author Organization [facility] ity Address [address] [place] [address] Care Team Providers Care Pilling Machine Operator Name Role Phone Ray Padilla MD Primary [...] Panel) 01/19/2022 Colorectal Cancer Screening: Colonoscopy 01/19/2022 Falls Risk Assessment 01/19/2022 Hepatitis C Screening 01/19/2022 Social Influencers of Health Screening 01/19/2022 DTaP,Tdap,and Td Vaccines (2 - Td or Tdap) 08/11/2022 08/11/2012 COVID-19 Vaccine (1 - 2023-2 5 season) 2023 Depression Screening 02/22/2024 Influenza Vaccine (#1) 2024 RSV Immunization Adult [...] age to complete this topic Care Teams Pilling Machine Operator Relationship Specialty Start Date End Date Ray Padilla MD PCP - General Internal Medicine 07/22/16
--- NOTE | 2024-09-13 11:09 | A.OFFPC_ITS ---
Intake Visit Reasons: MRI review Allergies NSAIDS (Non-Steroidal Anti-Inflamma Adverse Reaction (Verified 08/22/24 14:44) Nausea and Vomiting none Allergy (Unknown, Uncoded 05/15/24 09:34) unknown Medication List - Last Reconciled 09/13/24 by Kelly Owusu MD gabapentin 100 mg PO BEDTIME gabapentin 300 mg PO BEDTIME 90 days methylprednisolone (Medrol (Joe)) PO PER PKG DIR 6 days tramadol 50 mg PO BID PRN 30 days Tobacco use date assessed: 08/22/24 Dental Screening Dental Screen Date: 08/22/24 HPI MRI review HPI Details History - The patient is a 74-year-old male pres enting with severe back pain and associated leg pain. - The patient reports ongoing severe brianda n in the back and down the leg. - The pain is severe and impacts his edgar ly activities. - An MRI report shows there is severe na rrowing of the spinal canal causing nerve compression, which is believed to be the cause of his pain. - The patient has been taking Gabapentin 300 mg at bedtime for pain relief. - The severity of the pain has continued despite current medication. MRI report is as following Mild levocurvature with the apex at L3. 3 mm anterolisthesis of L5 on S1. Multilevel Modic type 2 change which is most prominent at L4/L5. Trace amount of modic type 1 change, most prominent at L3/L4 and L4/L5. No cord expansion or abnormal signal intensity. The conus medullaris terminates at T12/L1, which is normal. The cauda equina is unremarkable. Left renal parapelvic cyst. L1/L2: 4 mm broad-based disc bulge. Moderate facet joint and ligamentum flavum hypertrophy. Severe central spinal canal stenosis. Moderate right and severe left lateral recess stenosis. Mild right and moderate left foraminal stenosis. L2/L3: 5 mm broad-based disc bulge. Moderate facet joint and ligamentum flavum hypertrophy. Severe central spinal canal stenosis. Moderate right and severe left lateral recess stenosis. No right and moderate to severe left foraminal stenosis. L3/L4: 5 mm broad-based disc bulge. Moderate to severe facet joint and ligamentum flavum hypertrophy. Severe central spinal canal stenosis. Severe bilateral lateral recess stenosis. No foraminal stenosis. L4/L5: 5 mm broad-based disc bulge. Severe facet joint and ligamentum flavum hypertrophy. Severe central spinal canal stenosis. Severe bilateral lateral recess stenosis. Severe right and moderate left foraminal stenosis. L5/S1: Mild uncovering of the disc. 7 mm left paracentral disc protrusion. Severe facet joint and ligamentum flavum hypertrophy. Moderate to severe central canal stenosis. Severe bilateral lateral recess stenosis. Moderate bilateral foraminal stenosis. Medical History: - Severe spinal canal stenosis with asso ciated nerve compression. - Back and leg pain related to the nerve compression and spinal issues. Medications: - Gabapentin 300 mg at bedtime for pain relief. - Tramadol, currently taken twice a day for additional pain management. Social History: - Lives in [facility], which suggests p roximity to medical facilities mentioned for potential treatment. Problem List - Severe spinal canal stenosis causing n erve compression and severe pain. - Back pain casuing weakness in both leg s - unable to walk more than few steps wit hout discomfort Patient Instructions - Continue taking Gabapentin 300 mg, wit h an increase to three times a day. - Increase Tramadol to three times a day , every eight hours. - Await scheduling of an appointment wit a neurosurgeon for further evaluation and management. - Receive another round of steroids for temporary pain relief. Review of Systems - General: No fever no chills - Neurological: No headaches no dizziness - Ear nose throat: No sore throat no hearing difficulty no ear pain - Cardiovascular: No syncope, no chest pain, no palpitations - Gastrointestinal: No nausea vomiting or diarrhea - Endocrine: No polyuria polydipsia no heat intolerance - Genitourinary: No dysuria , no blood in urine PENDING SALE TO [facility] Medical History Hypertension, essential Family History Mother No problems noted. Father No problems noted. Social History Housing: House Alcohol intake: never Patient Tobacco Use Status: Never used Tobacco e-Cigarette/Vaping Use: Never Used Second Hand Smoke Exposure: No Current occupational status: retired Cognitive needs: No Hearing needs: No Vision needs: Yes Questionnaire Thrive Questionnaire Date Thrive assessed: 05/15/24 ULISSES-7 AMB Questionnaire ULISSES-7 Date ULISSES - 7 assessed: 05/15/24 Source: Developed by Drs. Michael Conway, Melissa Simmons, Nima Bonilla and colleagues, with an educational viraj from [employer]. Physical exam (Primary Care) Tobacco/Smoking Status: Tobacco use Status Tobacco use date assessed 08/22/24 09/13/24 11:09 Patient Tobacco Use Status Never used Tobacco 09/13/24 11:09 e-Cigarette/Vaping Use Never Used 09/13/24 11:09 Thrive Assessment: Date of Thrive Assessment Date Thrive assessed 05/15/24 09/13/24 11:09 Telehealth Telehealth Telehealth Platform: [email or web address] Location of provider rendering services: practice address Location of patient: address on file Patient Identification confirmed using: Name, : Yes Telehealth method: video Patient verbally consented to treatment: Yes Patient verbally consented to billing insurance company: Yes Patient informed of any privacy concerns related to visit: Yes Coding Level of Care Code Tele Est Pt Level 4 (56681) Diagnoses Spinal stenosis of lumbar region with neurogenic claudication M48.062 Neurogenic claudication status: with neurogenic claudication Weakness of both legs R29.898 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 M51.16 Time Spent (min) 30 Comment reviewing imaging/chart/face to face/ coordination of care Assessment & Plan Assessment & Plan (1) Lumbar spinal stenosis: Code(s): M48.061 - Spinal stenosis, lumbar region without neurogenic claudication Category: Medical Qualifiers: Neurogenic claudication status: with neurogenic claudication Qualified Code(s): M48.062 - Spinal stenosis, lumbar region with neurogenic claudication (2) Weakness of both legs: Code(s): R29.898 - Other symptoms and signs involving the musculoskeletal system Category: Medical (3) 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 - The patient reports ongoing severe pain in the back and down the leg. - The pain is severe and impacts his daily activities. - An MRI report shows there is severe narrowing of the spinal canal causing nerve compression, which is believed to be the cause of his pain. - The patient has been taking Gabapentin 300 mg at bedtime for pain relief. - The severity of the pain has continued despite current medication. MRI report is as following Mild levocurvature with the apex at L3. 3 mm anterolisthesis of L5 on S1. Multilevel Modic type 2 change which is most prominent at L4/L5. Trace amount of modic type 1 change, most prominent at L3/L4 and L4/L5. No cord expansion or abnormal signal intensity. The conus medullaris terminates at T12/L1, which is normal. The cauda equina is unremarkable. Left renal parapelvic cyst. L1/L2: 4 mm broad-based disc bulge. Moderate facet joint and ligamentum flavum hypertrophy. Severe central spinal canal stenosis. Moderate right and severe left lateral recess stenosis. Mild right and moderate left foraminal stenosis. L2/L3: 5 mm broad-based disc bulge. Moderate facet joint and ligamentum flavum hypertrophy. Severe central spinal canal stenosis. Moderate right and severe left lateral recess stenosis. No right and moderate to severe left foraminal stenosis. L3/L4: 5 mm broad-based disc bulge. Moderate to severe facet joint and ligamentum flavum hypertrophy. Severe central spinal canal stenosis. Severe bilateral lateral recess stenosis. No foraminal stenosis. L4/L5: 5 mm broad-based disc bulge. Severe facet joint and ligamentum flavum hypertrophy. Severe central spinal canal stenosis. Severe bilateral lateral recess stenosis. Severe right and moderate left foraminal stenosis. L5/S1: Mild uncovering of the disc. 7 mm left paracentral disc protrusion. Severe facet joint and ligamentum flavum hypertrophy. Moderate to severe central canal stenosis. Severe bilateral lateral recess stenosis. Moderate bilateral foraminal stenosis. Medical History: - Severe spinal canal stenosis with associated nerve compression. - Back and leg pain related to the nerve compression and spinal issues. Medications: - Gabapentin 300 mg at bedtime for pain relief. - Tramadol, currently taken twice a day for additional pain management. Social History: - Lives in [place], which suggests proximity to medical facilities mentioned for potential treatment. Problem List - Severe spinal canal stenosis causing nerve compression and severe pain. - Back pain casuing weakness in both legs - unable to walk more than few steps without discomfort Patient Instructions - Continue taking Gabapentin 300 mg, with an increase to three times a day. - Increase Tramadol to three times a day, every eight hours. - Await scheduling of an appointment with a neurosurgeon for further evaluation and management. - Receive another round of steroids for temporary pain relief. Orders: Referrals Neurosurgery Referral M48.061 - Spinal stenosis, lumbar region without neurogenic claudication, M51.16 - Intervertebral disc disorders with radiculopathy, lumbar region, R29.898 - Other symptoms and signs involving the musculoskeletal system Medications: Changed From gabapentin 300 mg PO BEDTIME 90 days 90 caps 0RF back pain To gabapentin 300 mg PO Q8H 270 caps 0RF back pain 90 days From tramadol 50 mg PO BID 30 days PRN 60 tabs 0RF pain To tramadol 50 mg PO Q8H PRN 90 tabs 0RF pain 30 days Refilled methylprednisolone (Medrol (Joe)) PO PER PKG DIR 21 ea 0RF 6 days Discontinued gabapentin Discontinued Reason: Doctor's Order 100 mg PO BEDTIME 60 caps 0RF
== END 2024-09-13 12:05 | disposition home or self-care (01) ==
LOC: HO.HMCC 08:21
PROVIDERS: PCP Internal Medicine; Visit Provider Internal Medicine
DX: M48.062 Spinal stenosis, lumbar region with neurogenic claudication (principal); R29.898 Other symptoms and signs involving the musculoskeletal system; M51.16 Intervertebral disc disorders with radiculopathy, lumbar region

== ENCOUNTER → 2024-09-17 14:55 | Outpatient (REF) | payer MEDICARE, MEDICAID, SELFPAY ==
--- NOTE | 2024-09-17 14:59 | CA_ITS ---
Transthoracic Echocardiogram Patient (Last, First, Middle): Rc Parnell K Gender: Male Date of : 1950 Age: 74 Procedure Date: 09/17/2024 Procedure Type: Transthoracic Echocardiogram Location: OP Height: 182.88 cm Weight: 90.27 kg BSA: 2.13 m2 Heart Rate: bpm BP: 146 / 80 mmHg Agriculture Inspector: ROXANNA Referring MD: Jarret Rueda MD Manager Therapy: Giacomo Garcias MD Symptoms: I10 - Essential (primary) hypertension Study Quality: Adequate ECG Rhythm: Sinus Conclusions: - 1. Mildly reduced LV ejection fraction of 45-50% with mild LVH with impaired relaxation filling pattern 2. Mildly dilated left atrium 3. Mild mitral regurgitation 4. Upper limits of normal RV systolic pressure 5. Mildly dilated ascending aorta at 4 cm 6. No gross pericardial effusion Findings Left Ventricle Normal left ventricular cavity size. There is mildly increased left ventricular wall thickness. The left ventricular systolic function is mildly decreased. The visually estimated ejection fraction is between 45-50%. There is paradoxical septal motion consistent with a left bundle branch block. Spectral Doppler is indicative of an impaired relaxation filling pattern. E/E prime ratio is between 8 and 15 consistent with indeterminate filling pressures. Peak GLS is -17.1%, which is borderline low. Right Ventricle Normal right ventricular cavity size and systolic function. Atria The left atrium is mildly dilated. There is a mobile atrial septum noted. There is no evidence of interatrial shunt. The right atrium is normal in size. Aortic Valve Normal aortic valve structure and function. There is no aortic valve stenosis. There is no aortic valve regurgitation. Mitral Valve Normal mitral valve structure and function. There is mild mitral valve regurgitation. There is no mitral valve stenosis. Pulmonic Valve The pulmonic valve is likely normal. Tricuspid Valve Normal tricuspid valve structure. There is mild tricuspid valve regurgitation. The right ventricular systolic pressure is 36 mmHg. Normal right atrial pressure. There is no evidence of pulmonary hypertension. Great Vessels The pulmonary artery was not well visualized. There is mild dilatation of the ascending aorta measuring 4.00 cm. Venous The inferior vena cava is normal in size. Pericardium/Pleural There is no evidence of pericardial effusion. Prior Study Comparison No prior study available for comparison. Measurements 2D Linear Measurements IVSd: 1.30 0.6-0.9/0.6-1.0 cm LVIDd: 4.97 3.9-5.3/4.2-5.9 cm LVIDd Index: 2.33 2.4-3.2/2.2-3.1 cm/m2 LVIDs: 4.08 2.0-3.6 cm LVPWd: 1.29 0.7-1.1 cm LA Diam: 3.90 2.7-3.8/3.0-4.0 cm LAIDs Index: 1.83 1.5-2.3 cm/m2 LV Mass: 347.12 67-162/88-224 g LV Mass Index: 162.97 43-95/49-115 g/m2 LVOT Diam: 2.10 3.0+(-)1.3 cm 2D Systolic Function EF 4C: 42.20 >55% EF 2C: 50.70 >55% EF BiP: 47.50 >55% Mitral Valve MV Pk E: 0.72 MV PK A: 1.14 MV Decel Time: 196.00 E/A: 0.60 E'Lateral: 6.31 E'Medial: 6.09 E/E' Med: 11.80 E/E' Lat: 11.40 PHT: 57.00 MVA PHT: 3.86 Decel Peñuelas: 3.65 Aortic Valve AoV Pk Phuc: 1.93 AoV Mn Phuc: 1.37 AoV VTI: 0.37 AoV Pk Grad: 15.00 Aov Mn Grad: 8.00 LATANYA Cont.VTI: 2.23 LVOT LVOT Pk Phuc: 1.19 LVOT Mn Phuc: 0.85 LVOT VTI: 0.24 LVOT Pk Grad: 6.00 LVOT Mn Grad: 3.00 LVOT Diam: 2.10 LVOT Area: 3.46 Diastolic Function MV Pk E: 0.72 MV Pk A: 1.14 E/A: 0.60 E'Medial: 6.09 E/E' Med: 11.80 E' Laterial: 6.31 E/E' Lat: 11.40 Right Ventricle TAPSE (mm): 28.20 TVS' Phuc: 12.50 Tricuspid Valve TR Pk Phuc: 2.88 TR Pk Grad: 33.00 RA Press: 3.00 RVSP: 36.00 Great Vessels Aorta Sinus of Valsalva: 4.09 2.0-3.[address] Ridge: 2.62 1.7-3.4 cm Ao Asc: 4.00 2.1-3.4 cm Updated in Other Vendor System with Status of Final Giacomo Garcias MD electronically signed on 09/18/2024 9:04:11 AM with status of Final
--- OUTSIDE RECORDS SUMMARY | 2024-09-17 15:28 | XMS_ITS | Clinical Summary ---
Author Organization [facility] Address [address] [place] [address] Care Team Providers Care Linotype Machinist Apprentice Name Role Phone Unavailable Primary Care Provider [...] Description 07/02/2024 9:40 AM EDT Office Visit [address] [place] [address] Jaymie Lopez from Last 3 [...] Description 12/26/2024 9:40 AM EST Office Visit [facility] [address] [place] [phone] Jaymie Lopez [address] [place] [address] Health Maintenance Due Date Last Done Comments Hepatitis C Screening 1950 Lipid Screening 1950 Imm-DTaP/Tdap/Td (1 - Tdap) 1969 CT Colonography 06/17/1995 Colonoscopy 06/17/1995 Colorectal Cancer Screening 06/17/1995 FIT/gFOBT 06/17/1995 Fecal DNA 06/17/1995 Flexible Sigmoidoscopy 06/17/1995 Imm-Pneumococcal 50+ (1 of 1 - PCV) 2000 Imm-Zoster, Recombinant (1 of 2) 2000 Falls Prevention 06/17/2015 Hypertension Screening (#1) 03/01/2023 [id number] (1 - season) 2023 Alcohol and Drug [...] Last 3 Months Insurance [place] MEDICA[place] DENTAL [facility] [place] [address]
--- OUTSIDE RECORDS SUMMARY | 2024-09-17 15:28 | XMS_ITS | Clinical Summary ---
Author Organization [facility] ity Address [address] [place] [address] Care Team Providers Care Web Marketing Assistant Name Role Phone Ray Padilla MD Primary [...] 2000 Zoster Vaccines (1 of 2) 2000 DTaP,Tdap,and Td Vaccines (2 - Td or [...] age to complete this topic Care Teams Web Marketing Assistant Relationship Specialty Start Date End Date Ray Padilla MD PCP - General Internal Medicine 07/22/16
== END ==
LOC: HO.CARD 14:55
PROVIDERS: PCP Internal Medicine; Visit Provider Internal Medicine
DX: I10 Essential (primary) hypertension (principal)
CPT/HCPCS: 93306

== ENCOUNTER → 2024-09-17 14:59 | Outpatient (BNV) | payer MEDICARE, MEDICAID, SELFPAY | PROVIDERS: PCP Internal Medicine; Visit Provider Internal Medicine Cardiovascular Disease | DX: I10 Essential (primary) hypertension (principal) | CPT/HCPCS: 93306 ==

== ENCOUNTER 2024-09-24 14:35 | Outpatient (REF) | payer MEDICARE, MEDICAID, SELFPAY ==
--- NOTE | ~2024-09-24 | US_ITS ---
EXAMINATION: BILATERAL CAROTID ULTRASOUND WITH DOPPLER HISTORY: I65.23 - Occlusion and stenosis of bilateral carotid arteries COMPARISON: There are no prior studies available for comparison. TECHNIQUE: Real time and Color and Spectral doppler ultrasonography of the carotid and vertebral arteries was performed in multiple planes. FINDINGS: No significant plaque is seen. An occasional arrhythmia is noted. VERTEBRAL FLOW DIRECTION: Antegrade bilaterally. PEAK SYSTOLIC VELOCITIES (in cm/sec): RIGHT: CCA: Prox: 115 Dist: 112 ICA: Prox: 78.5 Mid: 116 Dist: 140 ICA/CCA Ratio: 1.22 ECA: 108 Peak ICA end diastolic velocity (EDV): 41.6 LEFT: CCA: Prox: 119 Dist: 100 ICA: Prox: 71.9 Mid: 97.1 Dist: 72.7 ICA/CCA Ratio: 0.82 ECA: 133 Peak ICA end diastolic velocity (EDV): 36.2 US/US carotid duplex BI IMPRESSION: 1. Unremarkable carotid ultrasound. No significant stenosis. 2. An occasional arrhythmia is noted. Correlation with EKG is recommended. Electronically signed by: Michael Diez MD 09/24/2024 03:24 PM EDT
--- OUTSIDE RECORDS SUMMARY | 2024-09-24 14:38 | XMS_ITS | Clinical Summary ---
Author Organization [facility] Address [address] [place] [address] Care Team Providers Care Fisheries Director Name Role Phone Unavailable Primary Care Provider [...] Description 07/02/2024 9:40 AM EDT Office Visit [id number] [place] [phone] Jaymie Lopez from Last 3 [...] Description 12/26/2024 9:40 AM EST Office Visit [facility] [address] [place] [phone] Jaymie Lopez [address] [place] [address] Health Maintenance Due Date Last Done Comments Hepatitis C Screening 1950 Lipid Screening 1950 Imm-DTaP/Tdap/Td (1 - Tdap) 1969 CT Colonography 06/17/1995 Colonoscopy 06/17/1995 Colorectal Cancer Screening 06/17/1995 FIT/gFOBT 06/17/1995 Fecal DNA 06/17/1995 Flexible Sigmoidoscopy 06/17/1995 Imm-Pneumococcal 50+ (1 of 1 - PCV) 2000 Imm-Zoster, Recombinant (1 of 2) 2000 Falls Prevention 06/17/2015 Hypertension Screening (#1) 03/01/2023 [id number] (1 - season) 2023 Alcohol and Drug [...] AM EDT from Last 3 Months Insurance [place] [address] [phone] [facility] [place] [address]
--- OUTSIDE RECORDS SUMMARY | 2024-09-24 14:38 | XMS_ITS | Clinical Summary ---
Author Organization [facility] ity Address [address] [place] [address] Care Team Providers Care Cash Person Name Role Phone Ray Padilla MD Primary [...] age to complete this topic Care Teams Cash Person Relationship Specialty Start Date End Date Ray Padilla MD PCP - General Internal Medicine 07/22/16
== END 2024-09-24 14:36 | disposition home or self-care (01) ==
LOC: HO.US 14:35
PROVIDERS: PCP Internal Medicine; Visit Provider Internal Medicine
DX: I65.23 Occlusion and stenosis of bilateral carotid arteries (principal); I10 Essential (primary) hypertension
CPT/HCPCS: 93880

== ENCOUNTER → 2024-09-24 14:38 | Outpatient (BNV) | payer MEDICARE, MEDICAID, SELFPAY | PROVIDERS: PCP Internal Medicine; Visit Provider Radiology Diagnostic Radiology | DX: I65.23 Occlusion and stenosis of bilateral carotid arteries (principal) | CPT/HCPCS: 93880 ==

== ENCOUNTER → 2024-10-10 13:42 | Outpatient (REF) | payer MEDICARE, MEDICAID, SELFPAY ==
--- NOTE | 2024-10-10 13:46 | HM_ITS ---
* Total monitoring time 3 days. * Underlying rhythm is sinus with an average rate of 84/Min. * Rare supraventricular ectopy. Brief runs noted. * Ventricular ectopy noted with a burden of 1.4%. Rare couplets. * No significant pauses or high-grade AV blocks. * No patient markers or diary events. MTDD
--- OUTSIDE RECORDS SUMMARY | 2024-10-10 14:40 | XMS_ITS | Clinical Summary ---
Author Organization [facility] ity Address [address] [place] [address] Care Team Providers Care Registered Dental Assistant Rda Name Role Phone Ray Padilla MD Primary [...] age to complete this topic Care Teams Registered Dental Assistant Rda Relationship Specialty Start Date End Date Ray Padilla MD PCP - General Internal Medicine 07/22/16
--- OUTSIDE RECORDS SUMMARY | 2024-10-10 14:40 | XMS_ITS | Clinical Summary ---
Author Organization [facility] Address [address] [place] [address] Care Team Providers Care Automobile Mechanic Helper Name Role Phone Unavailable Primary Care [...] Description 12/26/2024 9:40 AM EST Office Visit [facility] [address] [place] [phone] Jaymie Lopez [address] [place] [address] Health Maintenance Due Date Last Done Comments Hepatitis C Screening 1950 Lipid Screening 1950 Imm-DTaP/Tdap/Td (1 - Tdap) 1969 CT Colonography 06/17/1995 Colonoscopy 06/17/1995 Colorectal Cancer Screening 06/17/1995 FIT/gFOBT 06/17/1995 Fecal DNA 06/17/1995 Flexible Sigmoidoscopy 06/17/1995 Imm-Pneumococcal 50+ (1 of 1 - PCV) 2000 Imm-Zoster, Recombinant (1 of 2) 2000 Falls Prevention 06/17/2015 Hypertension Screening (#1) 03/01/2023 [id number] ( - season) 2023 Alcohol and Drug Screen [...] Procedure Name Priority Date/Time Associated Diagnosis Comments COMP PERIODONTAL EVALUATION - NEW/EST PATIENT Routine 07/02/2024 9:40 AM EDT Encounter for dental examination and cleaning with abnormal findings INTRAORAL - COMP SERIES OF RADIOGRAPHIC IMAGES Routine 07/02/2024 9:40 AM EDT Encounter for dental examination and cleaning with abnormal findings Abfraction PROPHYLAXIS - ADULT Routine 07/02/2024 9 :40 AM EDT Encounter for dental examination and cleaning with abnormal findings Abfraction PERIODIC ORAL EVALUATION ESTABLISHED PATIENT Routine 07/02/2024 9:40 AM EDT Encounter for dental examination and cleaning with abnormal findings from Last 3 Months or Most Recently Relevant to Health Maintenance Insurance [place] MEDICAID DENTAL [facility]
== END ==
LOC: HO.CARD 13:42
PROVIDERS: PCP Internal Medicine; Visit Provider Internal Medicine
DX: I49.9 Cardiac arrhythmia, unspecified (principal)
CPT/HCPCS: 93242

== ENCOUNTER → 2024-10-10 13:46 | Outpatient (BNV) | payer MEDICARE, MEDICAID, SELFPAY | PROVIDERS: PCP Internal Medicine; Visit Provider Internal Medicine | DX: I49.3 Ventricular premature depolarization (principal); I49.49 Other premature depolarization | CPT/HCPCS: 93244 ==

== ENCOUNTER 2024-10-18 13:46 | Outpatient (AMB) | payer MEDICARE, MEDICAID, SELFPAY ==
[2024-10-18 13:48] VITALS: BP 140/72; PULSE 80; BMI 27.0
--- NOTE | 2024-10-18 13:48 | A.OFFVIS_ITS ---
Vital Signs 10/18/24 13:48 Height 6 ft Weight 199 lb 4.766 oz BMI 27.0 BP 140/72 H Blood Pressure Location Lt brachial Position Sitting Pulse 80 Pulse Source Pulse Oximeter Intake Visit Reasons: follow up/ echo/US Satellite Project Site Monitor Required: No Exchange Underwriting Consultant: Exchange Underwriting Consultant Present Allergies NSAIDS (Non-Steroidal Anti-Inflamma Adverse Reaction (Verified 10/18/24 13:51) Nausea and Vomiting none Allergy (Unknown, Uncoded 10/18/24 13:51) unknown Medication List - Last Reconciled 10/18/24 by Yary Lomeli NP-C gabapentin 300 mg PO Q8H 90 days tramadol 50 mg PO Q8H PRN 30 days HPI HPI follow up/ echo/US: Details: Rc is a 74-year-old male with past medical history of hypertension who was recently evaluated for uncontrolled hypertension and dizziness. He underwent an echocardiogram and carotid ultrasound and now presents for follow-up. Today he reports that he is not experiencing the dizziness that he had in the past. He believes it was related to his antihypertensive medications, hydrochlorothiazide and atenolol. He is no longer taking these meds. His home blood pressures have been ranging 130s to 140 systolic. No shortness of breath, PND, orthopnea or edema. No chest discomfort at rest or with activity. He reports good activity tolerance and had been riding his bike up to 30 minutes most days until recently. He is now experiencing sciatic pain and has an upcoming visit with a neurosurgeon. Daughter present. [facility], [facility] Medical History Hypertension, essential Family History Mother No problems noted. Father No problems noted. Social History Housing: House Alcohol intake: never Patient Tobacco Use Status: Never used Tobacco e-Cigarette/Vaping Use: Never Used Second Hand Smoke Exposure: No Current occupational status: retired Cognitive needs: No Hearing needs: No Vision needs: Yes Review of Systems Const All systems reviewed & are unremarkable except as noted in HPI and below ENT Denies dizziness Card Denies chest pain, Denies chest pain at rest, Denies chest pain with activity, Denies rapid heart rate, Denies pedal edema, Denies edema, Denies leg edema, Denies lightheadedness, Denies palpitations, Denies dyspnea, Denies dyspnea on exertion and Denies orthopnea Resp Denies cough, Denies dyspnea and Denies dyspnea on exertion GI Denies hematochezia and Denies change in stool character Musc Denies abnormal gait, Denies limited range of motion, Denies muscle cramps, Denies muscle weakness, Denies numbness, Denies radiating pain into limb, Denies stiffness and Denies tingling Neuro Denies abnormal gait, Denies dizziness, Denies numbness and Denies tingling Endo Denies palpitations Physical Exam Vital Signs: Last Vital Signs Pulse 80 10/18/24 13:48 BP 140/72 H 10/18/24 13:48 BMI result Body Mass Index 27.0 Const General: cooperative, healthy appearing, comfortable and no acute distress Orientation/consciousness: patient oriented x3 Neck Neck: Yes normal visual inspection and Yes no JVD Resp Effort & Inspection: normal respiratory effort Auscultation: clear to auscultation bilaterally, no crackles, no rales, no rhonchi and no wheezes Cardio Rate: regular rate Rhythm: regular rhythm Heart sounds: S1 normal heart sound present, S2 normal heart sound present, no gallops, no murmurs and no rubs Neuro General: patient oriented x3 Extrem General: Yes normal to inspection, No no pedal edema and No calf tenderness Psych Appearance: grossly normal Mental Status: mental status grossly normal Speech and movement: Normal speech and movement present Assessment & Plan Assessment & Plan (1) Hypertension, essential: Code(s): I10 - Essential (primary) hypertension Category: Medical Plan: Blood pressure goal less than 130/80. Mildly elevated today. He is no longer on antihypertensives. His EKG from last visit shows sinus rhythm, LVH, left bundle branch block. Echocardiogram done 09/17/2024 showed EF 45-50%, mild LVH, mildly dilated left atrium, mild MR, ascending aorta 4 cm. The importance of good blood pressure control reviewed with him. Suggested start of Leandro/Arb and he is reluctant at this time and wants to discuss with his PCP. Daughter request that Leandro not be used due to her concerns about angioedema. With his mild cardiomyopathy would recommend valsartan. Will forward this note to his PCP. Holter has been completed, results are pending. If he is found to have tachyarrhythmia then that may be contributing to his mild cardiomyopathy and beta-sonny would be recommended as well. Cardiology follow-up 3-4 months, sooner if needed. (2) LVH (left ventricular hypertrophy): Code(s): I51.7 - Cardiomegaly Category: Medical Plan: Mild LVH noted on recent echocardiogram. (3) Cardiomyopathy: Code(s): I42.9 - Cardiomyopathy, unspecified Category: Medical Plan: Mild cardiomyopathy. Unclear at this time if it is ischemic versus nonischemic. His Holter monitor is pending. If no significant arrhythmia then will plan for a pharmacological nuclear stress test to evaluate for ischemia. He is having issues with sciatica and will not be able to exercise on treadmill. (4) Abnormal EKG: Code(s): R94.31 - Abnormal electrocardiogram [ECG] [EKG] Category: Medical Plan: Recent EKG is showing sinus rhythm with LVH, intraventricular conduction delay which appears to be left bundle branch block. Left bundle branch block can also contribute to his mild nonischemic cardiomyopathy. Plan We discussed the patient's cardiovascular health, focusing on hypertension and heart function. The echocardiogram showed left ventricular hypertrophy and reduced ejection fraction. We plan to monitor the heart rhythm with a Holter monitor, and consider an LEANDRO inhibitor or ARB for blood pressure management. Nuclear stress test will likely be ordered once the holter monitor results are reviewed. The patient is advised to follow up with neurosurgery for leg pain, which may affect blood pressure readings. We will send a note to the primary care physician with these recommendations. Patient Instructions: - Monitor blood pressure regularly at home. - Follow up with neurosurgery for leg pain evaluation. - Await results from the heart monitor and follow up as advised. - Discuss potential blood pressure medication changes with primary care physician. Patient was informed and verbally consented to the use of an ambient scribe for clinic note documentation during this visit. Visit time spent on chart review, interview, assessment, orders, documentation. Coding Level of Care Code Est Pt Level 4 (45738) Complex EM visit Add On G2211 Diagnoses Hypertension, essential I10 LVH (left ventricular hypertrophy) I51.7 Cardiomyopathy I42.9 Abnormal EKG R94.31 Time Spent (min) 32
--- OUTSIDE RECORDS SUMMARY | 2024-10-18 14:31 | XMS_ITS | Clinical Summary ---
Author Organization [facility] ity Address [address] [place] [address] Care Team Providers Care Quality Assurance Coach Name Role Phone Ray Padilla MD Primary [...] age to complete this topic Care Teams Quality Assurance Coach Relationship Specialty Start Date End Date Ray Padilla MD PCP - General Internal Medicine 07/22/16
--- OUTSIDE RECORDS SUMMARY | 2024-10-18 14:31 | XMS_ITS | Clinical Summary ---
Author Organization [facility] Address [address] [place] [address] Care Team Providers Care Game Attendant Name Role Phone Unavailable Primary Care Provider [...] Description 12/26/2024 9:40 AM EST Office Visit [facility] [address] [place] [phone] Jaymie Lopez [address] [place] [address] Health Maintenance Due Date Last Done Comments Hepatitis C Screening 1950 Lipid Screening 1950 Imm-DTaP/Tdap/Td (1 - Tdap) 1969 CT Colonography 06/17/1995 Colonoscopy 06/17/1995 Colorectal Cancer Screening 06/17/1995 FIT/gFOBT 06/17/1995 Fecal DNA 06/17/1995 Flexible Sigmoidoscopy 06/17/1995 Imm-Pneumococcal 50+ (1 of 1 - PCV) 2000 Imm-Zoster, Recombinant (1 of 2) 2000 Falls Prevention 06/17/2015 Hypertension Screening (#1) 03/01/2023 [id number] ( - season) 2023 Alcohol and Drug [...] Most Recently Relevant to Health Maintenance Insurance [place] D[place] [facility] D[facility]AL
== END 2024-10-18 14:33 | disposition home or self-care (01) ==
LOC: HO.HCS 13:47
PROVIDERS: PCP Internal Medicine; Visit Provider Nurse Practitioner Family
DX: I10 Essential (primary) hypertension (principal); I51.7 Cardiomegaly; I42.9 Cardiomyopathy, unspecified; R94.31 Abnormal electrocardiogram [ECG] [EKG]
CPT/HCPCS: 99214; G2211

== ENCOUNTER → 2024-10-18 13:46 | Outpatient (BNVA) | payer MEDICARE, MEDICAID, SELFPAY | PROVIDERS: PCP Internal Medicine; Visit Provider Nurse Practitioner Family | DX: I10 Essential (primary) hypertension (principal); R94.31 Abnormal electrocardiogram [ECG] [EKG]; I51.7 Cardiomegaly; I42.9 Cardiomyopathy, unspecified | CPT/HCPCS: 99212 ==

== ENCOUNTER 2024-11-21 10:36 | Outpatient (AMB) | payer MEDICARE, MEDICAID, SELFPAY ==
[2024-11-21 10:38] VITALS: BP 160/90; PULSE 82; O2SAT 98; BMI 27.0
--- NOTE | 2024-11-21 10:38 | A.OFFVIS_ITS ---
Intake Vital Signs 11/21/24 10:38 Height 6 ft Weight 199 lb BMI 27.0 BP 160/90 H Blood Pressure Location Lt brachial Position Sitting Pulse 82 Pulse Source Pulse Oximeter Pulse Oximetry (%) 98 Oxygen Delivery Method Room Air Intake Visit Reasons: AWV G0438 Materials Manager Required: No Accompanied by: Self / Same As Patient Allergies NSAIDS (Non-Steroidal Anti-Inflamma Adverse Reaction (Verified 11/21/24 10:38) Nausea and Vomiting none Allergy (Unknown, Uncoded 10/18/24 13:51) unknown Medication List - Last Reconciled 11/21/24 by Kelly Owusu MD gabapentin 300 mg PO Q8H 90 days tramadol 50 mg PO Q8H PRN 30 days Do you need a note to return to daycare/school/sports/work: No HPI AWV G0438 HPI Details History The patient is a 74-year-old male presenting with blood pressure management and Medicare wellness visit Recent echocardiogram showed - Mildly reduced ejection fraction at 45 to 50%, mild left ventricular hypertrophy, impaired relaxation, mild dilation of the left atrium, and mild dilation of the aorta at 4 cm were noted. - The patient is due for a follow-up wit h a board certified behavioral analyst. Hypertension: - History of elevated blood pressure jaime henry, with home measurements around 140/130s today it is 160/90. - Previously prescribed Atenolol 100 mg with chlorthalidone but discontinued due to low blood pressure and dizziness Spinal stenosis with lumbar radiculopathy left side Recently saw Dr. Roger neurosurgeon who recommended physical therapy which patient is having currently Medications: - Tramadol for pain management. - Gabapentin for neuropathic pain. - Aspirin, 81 mg, taken intermittently f or blood thinning. Social History: - Denies needing outside assistance for daily activities and functional tasks. - Manages his own finances and driving. Patient Instructions - Start new antihypertensive medication: Losartan. 25 mg daily - Monitor blood pressure at home, sarai davenport a log to bring to next visit. - Take aspirin 81 mg daily for blood thi nning. - Schedule and attend follow-up appointm ent with a board certified behavioral analyst. - Review healthcare proxy documents with the daughter and return completed forms. - Undergo a fasting blood test before th e next visit in approximately three weeks. Review of Systems General: No fever no chills neurological: No headaches no dizziness ear nose throat: No sore throat no hearing difficulty no ear pain cardiovascular: No syncope, no chest pain, no palpitations gastrointestinal: No nausea vomiting or diarrhea endocrine: No polyuria polydipsia no heat intolerance genitourinary: No dysuria skin: No new complaints Physical Exam general: No acute distress HEENT: No acute findings neck: Supple respiratory system: Able to talk in full sentences, no audible wheeze no stridor cardiovascular: S1-S2 RRR gastrointestinal: No pain extremities: No new findings SERVICE UNIT OPERATOR: Alert awake oriented x3 motor sensory intact skin: Normal turgor HPI Comments History of Present Illness Details AWV medical/social history reviewed Past medical history reviewed Holden of care / care team list updated Surgical/ hospitalization history reviewed Current medications including OTC and supplements reviewed Family history reviewed Tobacco controlled form updated Alcohol use form updated Illicit drug use in social history reviewed Current diagnosis of depression screening updated Appropriate PHQ 2/PHQ-9 completed MMSE completed . Fall risk: Assessed Fall history: None Have you had any falls with injury in the past year? No Have you had 2 or more falls in the past year? No Fall risk assessment completed HRA filled out by the patient reviewed by provider and scanned . Examination IPPE/AWE: Balance intact Romberg intact Tandem walk intact walk-in turn intact rise from sit to stand intact . Hearing whisper test pass Medication list reviewed, patient is stable on medications All other providers patient is seeing discussed and noted PPP handed to patient [facility] Medical History Hypertension, essential Family History Mother No problems noted. Father No problems noted. Social History Housing: House Alcohol intake: never Patient Tobacco Use Status: Never used Tobacco e-Cigarette/Vaping Use: Never Used Second Hand Smoke Exposure: No Current occupational status: retired Cognitive needs: No Hearing needs: No Vision needs: Yes Questionnaire Medicare Wellness Checkup [age] What gender do you identify with?: male During the past 4 weeks, how much have you been bothered by emotional problems such as feeling anxious, depressed, irritable, sad or downhearted, and blue?: not at all During the past 4 weeks, has your physical & emotional health limited your social activities with family, friends, neighbors, or groups?: not at all During the past 4 weeks, how much bodily pain have you generally had?: moderate pain During the past 4 weeks, was someone available to help you if you needed & wanted help?: yes, as much as I wanted During the past 4 weeks, what was the hardest physical activity you could do for at least 2 minutes?: heavy Can you get to places out of walking distance without help? (For eg., can you travel alone on buses, taxis or drive your car?): Yes Can you go shopping for groceries or clothes without someone's help?: Yes Can you prepare your own meals?: Yes Can you do your housework without help?: Yes Because of any health problems, do you need the help of another person with your personal care needs such as eating, bathing, dressing or getting around the house?: No Can you handle your own money without help?: Yes During the past 4 weeks, how would you rate your health in general?: very good During the past 4 weeks how have things been going for you?: pretty well Are you having difficulties driving your car?: no Do you always fasten your seat belt when you are in a car?: yes, usually During past 4 weeks, have you been bothered by the following: never: Falling or dizzy when standing up, Sexual problems?, Trouble eating well?, Teeth or denture problems?, Problems using the telephone? and Tiredness or fatigue? Have you fallen 2 or more times in the past year?: No Are you afraid of falling?: No Are you a smoker?: no During the past 4 weeks, how many drinks of wine, beer, or other alcoholic beverages did you have?: no alcohol at all Do you exercise for about 20 minutes 3 or more times a week?: yes, most of the time Have you been given information to help with the following?: yes: Hazards in your house that might hurt you? and yes: Keeping track of your medications? How often do you have trouble taking medicines the way you have been told to take them?: I always take medicine as prescribed How confident are you that you can control & manage most of your health problems?: very confident What is your race?: Other Mini Mental State Exam (MMSE) Orientation What is the (year) (season) (date) (day) (month)?: year, season, date, day and month Where are we (state) (county) (town or city) (hospital) (floor)?: state, county, town or city, hospital/clinic and floor Score Score: 10 Activity of Daily Living Bathing - sponge bath, tub bath or shower: receives no assistance (gets in/out by self, if usual bathing means Dressing - getting clothes from closets & drawers, including inner/outer garments & fasteners.: gets clothes & gets completely dressed without help Toileting - going to the 'toilet room' for urine/bowel elimination & cleaning self/arranging clothes: goes to toilet room, cleans self, arranges clothes without help Transfer: moves in & out of bed and chair without help (may use support object) Continence: controls urination/bowel movements completely by self Feeding: feeds self without help Total Score: 0 Information obtained from: patient Using telephone: independent Traveling: independent Shopping: independent Preparing meals: independent Housework: independent Taking medicine: independent Managing money: independent PHQ-9 Over the last 2 weeks, how often have you been bothered by any of the following problems? 1. Little interest or pleasure in doing things: not at all 2. Feeling down, depressed, or hopeless: not at all 3. Trouble falling or staying asleep, or sleeping too much: not at all 4. Feeling tired or having little energy: not at all 5. Poor appetite or overeating: not at all 6. Feeling bad about yourself - or that you are a failure or have let yourself or your family down: not at all 7. Trouble concentrating on things, such as reading the newspaper or watching television: not at all 8. Moving or speaking so slowly that other people could have noticed. Or the opposite - being so fidgety or restless that you have been moving around a lot more than usual: not at all 9. Thoughts that you would be better off or of hurting yourself in some way: not at all Total score: 0 Depression Screening Interpretation: Negative Depression Screening Done: Yes 17621 - PHQ-9 Billing: Yes Source: Developed by Jerman Norriset B.W. Troy, Nima Bonilla and colleagues, with an educational viraj from [employer]. Physical Exam Vital Signs: Last Vital Signs Pulse 82 11/21/24 10:38 BP 160/90 H 11/21/24 10:38 Pulse Ox 98 11/21/24 10:38 Oxygen Delivery Method Room Air 11/21/24 10:38 BMI result Body Mass Index 27.0 Assessment & Plan Assessment & Plan (1) Medicare annual wellness visit, subsequent: Code(s): Z00.00 - Encounter for general adult medical examination without abnormal findings (2) Elevated blood pressure reading: Code(s): R03.0 - Elevated blood-pressure reading, without diagnosis of hypertension (3) LVH (left ventricular hypertrophy): Code(s): I51.7 - Cardiomegaly (4) Impaired fasting blood sugar: Code(s): R73.01 - Impaired fasting glucose Plan History The patient is a 74-year-old male presenting with blood pressure Recent echocardiogram showed - Mildly reduced ejection fraction at 45 to 50%, mild left ventricular hypertrophy, impaired relaxation, mild dilation of the left atrium, and mild dilation of the aorta at 4 cm were noted. - The patient is due for a follow-up with a board certified behavioral analyst. Hypertension: - History of elevated blood pressure readings, with home measurements around 140/130s today it is 160/90. - Previously prescribed Atenolol 100 mg with chlorthalidone but discontinued due to low blood pressure and dizziness Spinal stenosis with lumbar radiculopathy left side Recently saw Dr. Roger neurosurgeon who recommended physical therapy which patient is having currently Medications: - Tramadol for pain management. - Gabapentin for neuropathic pain. - Aspirin, 81 mg, taken intermittently for blood thinning. Social History: - Denies needing outside assistance for daily activities and functional tasks. - Manages his own finances and driving. Patient Instructions - Start new antihypertensive medication: Losartan. 25 mg daily - Monitor blood pressure at home, keeping a log to bring to next visit. - Take aspirin 81 mg daily for blood thinning. - Schedule and attend follow-up appointment with a board certified behavioral analyst. - Review healthcare proxy documents with the daughter and return completed forms. - Undergo a fasting blood test before the next visit in approximately three weeks. Medications: New losartan 25 mg PO DAILY 30 tabs 0RF Quality Reporting (2019) Depression/Bipolar (159/160/161/177) PHQ-9: Total score: 0 Coding Level of Care Code Medicare Subsequent (G0439) Est Pt Level 3 (52318) Diagnoses Medicare annual wellness visit, subsequent Z00.00 Elevated blood pressure reading R03.0 LVH (left ventricular hypertrophy) I51.7 Impaired fasting blood sugar R73.01 CPT Codes Advance Care Planning - Time spent: 1-15 minutes, not on file ([id number]) Additional Codes PHQ-9 - 57754 - PHQ-9 Billing: Yes ([id number]) Advance Care Planning Forms completed: Health Care Proxy and MOLST Time spent: 1-15 minutes, not on file
--- OUTSIDE RECORDS SUMMARY | 2024-11-21 12:12 | XMS_ITS | Clinical Summary ---
Author Organization [facility] ity Address [address] [place] [address] Care Team Providers Care Lead Application Architect Name Role Phone Ray Padilla MD Primary [...] (2 - Td or Tdap) 08/11/2022 08/11/2012 Depression Screening 02/22/2024 COVID-19 Vaccine (1 - 2023-2 5 season) 2024 Influenza Vaccine (#1) 2024 RSV Immunization Adult [...] age to complete this topic Care Teams Lead Application Architect Relationship Specialty Start Date End Date Ray Padilla MD PCP - General Internal Medicine 07/22/16
--- OUTSIDE RECORDS SUMMARY | 2024-11-21 12:12 | XMS_ITS | Clinical Summary ---
Author Organization [facility] Address [address] [place] [address] Care Team Providers Care Staff Registered Nurse Name Role Phone Unavailable Primary Care Provider [...] Description 12/26/2024 9:40 AM EST Office Visit [facility] [address] [place] [phone] Jaymie Lopez [address] [place] [address] Health Maintenance Due Date Last Done Comments Hepatitis C Screening 1950 Lipid Screening 1950 Imm-DTaP/Tdap/Td (1 - Tdap) 1969 CT Colonography 06/17/1995 Colonoscopy 06/17/1995 Colorectal Cancer Screening 06/17/1995 FIT/gFOBT 06/17/1995 Fecal DNA 06/17/1995 Flexible Sigmoidoscopy 06/17/1995 Imm-Pneumococcal 50+ (1 of 1 - PCV) 2000 Imm-Zoster, Recombinant (1 of 2) 2000 Falls Prevention 06/17/2015 Hypertension Screening (#1) 03/01/2023 Alcohol and Drug Screen 02/22/2024 Depression Annual Screen 02/22/2024 [id number] (1 - season) 2024 Imm-Influenza (#1) 2024 Tobacco Screening 07/02/2025 07/02/2024 [...] Most Recently Relevant to Health Maintenance Insurance [place] MEDICAID DENTAL [facility] DENTAL
== END 2024-11-21 11:06 | disposition home or self-care (01) ==
LOC: HO.HMCC 10:36
PROVIDERS: PCP Internal Medicine; Visit Provider Internal Medicine
DX: Z00.00 Encounter for general adult medical examination without abnormal findings (principal); R03.0 Elevated blood-pressure reading, without diagnosis of hypertension; I51.7 Cardiomegaly; R73.01 Impaired fasting glucose

== ENCOUNTER → 2024-11-21 10:36 | Outpatient (BNVA) | payer MEDICARE, MEDICAID, SELFPAY | PROVIDERS: PCP Internal Medicine; Visit Provider Internal Medicine | DX: Z00.00 Encounter for general adult medical examination without abnormal findings (principal); I10 Essential (primary) hypertension; M54.16 Radiculopathy, lumbar region; M48.061 Spinal stenosis, lumbar region without neurogenic claudication; R03.0 Elevated blood-pressure reading, without diagnosis of hypertension; I51.7 Cardiomegaly; R73.01 Impaired fasting glucose | CPT/HCPCS: 96127; 99212 ==

== ENCOUNTER 2024-12-12 08:50 | Outpatient (REF) | payer MEDICARE, MEDICAID, SELFPAY ==
--- OUTSIDE RECORDS SUMMARY | 2024-12-12 09:33 | XMS_ITS | Clinical Summary ---
Author Organization [facility] Address [address] [place] [address] Care Team Providers Care Pattern Filer Name Role Phone Unavailable Primary Care Provider [...] Description 12/26/2024 9:40 AM EST Office Visit [facility] [address] [place] [phone] Jaymie Lopez [address] [place] [address] Health Maintenance Due Date Last Done Comments [...] Drug Screen 02/22/2024 Depression Annual Screen 02/22/2024 [id number] (1 - season) 2024 Imm-Influenza (#1) 2024 [...] Most Recently Relevant to Health Maintenance Insurance [place] MEDICAID [facility]
--- OUTSIDE RECORDS SUMMARY | 2024-12-12 09:33 | XMS_ITS | Clinical Summary ---
Author Organization [facility] ity Address [address] [place] [address] Care Team Providers Care Loan Servicing Officer Name Role Phone Ray Padilla MD Primary [...] age to complete this topic Care Teams Loan Servicing Officer Relationship Specialty Start Date End Date Ray Padilla MD PCP - General Internal Medicine 07/22/16
[2024-12-12 10:47] LABS: MANUAL DIFF FLAG NO
[2024-12-12 10:52] LABS: Hematocrit 41.2 % (42.0-52.0); Hemoglobin 13.7 g/dl (14.0-18.0); Imm Gran Abs Auto 0.02 X10*3/uL (0.00-0.03); Imm Gran Pct Auto 0.3 % (0.0-0.4); Lymphocytes Absolute Auto 1.8 X10*3/uL (1.2-4.9); Mean Corpuscular HGB Conc 33.3 g/dl (31.0-36.0); Mean Corpuscular Hemoglobin 30.3 pg (27.0-33.0); Mean Corpuscular Volume 91.2 fL (80.0-98.0); NRBC Abs Auto 0.000 X10*3/uL (0.0-0.012); NRBC Pct Auto 0.0 /100WBC (0.0-0.2); Platelet Count 201 X10*3/uL (160-400); Red Blood Count 4.52 X10*6/uL (4.60-5.80); White Blood Count 6.0 X10*3/uL (4.8-10.8)
[2024-12-12 11:21] LABS: Alanine Aminotransferase 35 U/L (0-40); Albumin Level 4.1 g/dL (3.5-5.0); Alkaline Phosphatase 54 U/L (39-117); Anion Gap 9 (12-20); Aspartate Amino Transferase 35 U/L (5-37); Blood Urea Nitrogen 15 mg/dL (9-16); Calcium 8.5 mg/dL (8.4-10.2); Carbon Dioxide 31 mmol/L (22-29); Chloride 106 mmol/L (96-108); Cholesterol 150 mg/dL (<200); Estimated Glomerular Filt Rate > 60; HDL Cholesterol 51 mg/dL (>40); Potassium 4.5 mmol/L (3.3-5.1); Sodium 141 mmol/L (135-145); Total Protein 6.8 g/dL (6.5-8.0); Triglycerides 63 mg/dL (<150)
[2024-12-12 11:26] LABS: Ferritin 81 ng/mL (20-250)
[2024-12-12 12:01] LABS: Vitamin B12 414 pg/mL (200-900)
== END 2024-12-12 08:51 | disposition home or self-care (01) ==
LOC: HO.HMGCLDS 08:50
PROVIDERS: PCP Internal Medicine; Visit Provider Internal Medicine
DX: I10 Essential (primary) hypertension (principal); D64.9 Anemia, unspecified; G56.02 Carpal tunnel syndrome, left upper limb; R73.01 Impaired fasting glucose
CPT/HCPCS: 36415; 80053; 80061; 82607; 82728; 83036; 85025

== ENCOUNTER → 2024-12-13 08:24 | Outpatient (REF) | payer MEDICARE, MEDICAID, SELFPAY ==
--- NOTE | ~2024-12-13 | NM_ITS ---
Lexiscan Myocardial perfusion study Indication: Abnormal EKG Technique: The patient was brought in for a Lexiscan perfusion study on 12/13/2024 and was injected 0.4 mg of Lexiscan intravenously. Within a minute of this injection 30 mCi of sestamibi was given intravenously. Images were obtained using the SPECT gamma camera interlaced with the gating device. Images were obtained in supine position. Resting perfusion study was performed on 12/19/2024. Patient was administered 30 mCi of sestamibi intravenously at rest. Images were then obtained in supine position. Total DLP 71 mGy-cm. Images were processed with the software and compared side to side in short axis, horizontal long axis and vertical long axis views. Findings: Raw aquisition reviewed. The stress perfusion study showed no significant perfusion abnormality. Both uncorrected as well as CT attenuation corrected images were reviewed. The gated study shows normal LV systolic function with calculated LVEF of 34%. LV cavity is dilated in size. The gated study shows globally reduced wall thickening and contraction of segments. Resting study shows reduced tracer uptake in the septum. No major change with CT attenuation correction. Gating at rest reveals globally reduced wall motion with ejection fraction at 35%. The findings are consistent with no clear reversible or fixed perfusion abnormality. NM/NM cardiolite stress test Impression: 1. Myocardial perfusion imaging study shows probably normal myocardial perfusion. 2. Gated LVEF is 34% during stress and 35% during rest. 3. Transient ischemic dilatation not present but LV chamber is dilated. EKG component of the test reported separately. Electronically signed by: Jarret Ruead MD 12/19/2024 12:50 PM EDT
--- NOTE | 2024-12-13 08:27 | CA_ITS ---
Acquisition Time: 2024-12-13 08:42:27 Total Exercise Time: 00:02:00 Test Indications: abn ekg Medications: see h&p Protocol: LEXISCAN Max HR: 107 BPM 73% of Pred: 146 BPM Max BP: 164/72 mmHG Max Work Load: 1.0 METS Pharmacological stress test with Lexiscan while pt marches in his chair, with reports of SOB and headache, with isolated PVCs, with normotensive response to injection. Nondiagnostic EKG for ischemia. In recovery, pt treated with IVP Aminophylline 75 mg to reverse Lexiscan after which pt's breathing improved to baseline and heachache resolved. Nuclear images pending. Test reviewed with Dr. Garcias. Referred By: Yary Lomeli Electronically Signed By: Arnulfo Torres
--- OUTSIDE RECORDS SUMMARY | 2024-12-13 08:46 | XMS_ITS | Clinical Summary ---
Author Organization [facility] Address [address] [place] [address] Care Team Providers Care Montessori Teacher Name Role Phone Unavailable Primary Care Provider [...] Description 12/26/2024 9:40 AM EST Office Visit [facility] [address] [place] [phone] Jaymie Lopez [address] [place] [address] Health Maintenance Due Date Last Done Comments [...] Drug Screen 02/22/2024 Depression Annual Screen 02/22/2024 [id number] (1 - season) 2024 Imm-Influenza (#1) 2024 [...] Most Recently Relevant to Health Maintenance Insurance [place] MED[place] D[facility] [facility]
--- OUTSIDE RECORDS SUMMARY | 2024-12-13 08:46 | XMS_ITS | Clinical Summary ---
Author Organization [facility] ity Address [address] [place] [address] Care Team Providers Care Teacher Dramatics Name Role Phone Ray Padilla MD Primary [...] age to complete this topic Care Teams Teacher Dramatics Relationship Specialty Start Date End Date Ray Padilla MD PCP - General Internal Medicine 07/22/16
== END ==
LOC: HO.CARD 08:24
PROVIDERS: PCP Internal Medicine; Visit Provider Nurse Practitioner Family
DX: R94.31 Abnormal electrocardiogram [ECG] [EKG] (principal); I10 Essential (primary) hypertension; I42.9 Cardiomyopathy, unspecified
CPT/HCPCS: 78452; 93017; A9500; J0280; J2785

== ENCOUNTER → 2024-12-13 08:27 | Outpatient (BNV) | payer MEDICARE, MEDICAID, SELFPAY | PROVIDERS: PCP Internal Medicine | DX: R94.31 Abnormal electrocardiogram [ECG] [EKG] (principal) | CPT/HCPCS: 78452; 93016; 93018 ==

== ENCOUNTER 2024-12-14 10:45 | Outpatient (AMB) | payer MEDICARE, MEDICAID, SELFPAY ==
--- NOTE | 2024-12-14 10:52 | A.OFFPC_ITS ---
Vital Signs 12/14/24 10:54 Height 6 ft Weight 203 lb BMI 27.5 BP 150/64 H Blood Pressure Location Lt brachial Position Sitting Respiration 16 Pulse 81 Pulse Source Pulse Oximeter Temp 97.7 F Temp Source Oral Pulse Oximetry (%) 95 Oxygen Delivery Method Room Air Intake Visit Reasons: Follow up BP Registered Nurse Bone Marrow Transplant Required: No Allergies NSAIDS (Non-Steroidal Anti-Inflamma Adverse Reaction (Verified 11/21/24 10:38) Nausea and Vomiting none Allergy (Unknown, Uncoded 10/18/24 13:51) unknown Medication List - Last Reconciled 12/14/24 by Kelly Owusu MD losartan 25 mg PO BID Tobacco use date assessed: 12/14/24 Fall risk assessment: No Falls in past year Last assessed Fall Risk: 12/14/24 Dental Screening Dental Screen Date: 12/14/24 Did you have a dental visit in the last 12 months?: Yes Did you have a dental problem in the last 6 months where you did not have access to dental care?: No Was dental information given to patient?: Patient has dentist HPI Follow up BP HPI Details History of Present Illness The patient is a 74-year-old male presenting with follow-up for his hypertension management. Hypertension: - The patient has a history of elevated blood pressure and was last seen on November 21, 2024. - Losartan 25 mg was added to his regime n at that time to manage hypertension. - Recent blood pressure readings at home have been in the 130s, but high during office visits. - The patient reports consistent home mo nitoring with occasional discrepancies in readings compared to clinical settings. Anemia: - Laboratory results from December 12 i ndicate a hemoglobin level of 13.7, consistent with slight anemia noted earlier this year. - Stable with no new symptoms reported. Back Pain: - Reports chronic back pain due to sever e multilevel degenerative changes and disc bulge in the lumbar spine. - Currently managed with physical therap y and Tylenol; discontinued gabapentin and tramadol. - Pain has not worsened over the past da ys, with intermittent mild discomfort especially in the ankle without identifiable aggravating factors. 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 - Continue regular home monitoring of bl ood pressure; adjust dosage as needed if symptoms such as dizziness occur. - Follow-up in 6 months unless adverse e ffects or uncontrolled symptoms are reported. - Continue current anemia monitoring; no immediate intervention required as levels are stable. - Patient advised to continue physical t herapy for back pain and to avoid salt intake. - Suggest evaluation by orthopedic speci alist if ankle discomfort persists. - Ensure flu vaccine obtained from pharm [facility]ins[facility] for senior dose if desired by the patient. Review of Systems - General: No fever no chills - Neurological: No headaches no dizziness - Ear nose throat: No sore throat no hearing difficulty no ear pain - Cardiovascular: No syncope, no chest pain, no palpitations - Gastrointestinal: No nausea vomiting or diarrhea - Endocrine: No polyuria polydipsia no heat intolerance - Genitourinary: No dysuria , no blood in urine Physical Exam - General: No acute distress - HEENT: No acute findings - Neck: Supple - Respiratory system: Able to talk in f ull sentences, no audible wheeze - Cardiovascular: S1-S2 regular in rate and rhythm - Gastrointestinal: No pain - Extremities: No new findings - 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 Father No problems noted. Social History Housing: House Alcohol intake: never Patient Tobacco Use Status: Never used Tobacco e-Cigarette/Vaping Use: Never Used Second Hand Smoke Exposure: No Current occupational status: retired Cognitive needs: No Hearing needs: No Vision needs: Yes Questionnaire PHQ-9 Over the last 2 weeks, how often have you been bothered by any of the following problems? 1. Little interest or pleasure in doing things: not at all 2. Feeling down, depressed, or hopeless: not at all 3. Trouble falling or staying asleep, or sleeping too much: not at all 4. Feeling tired or having little energy: not at all 5. Poor appetite or overeating: not at all 6. Feeling bad about yourself - or that you are a failure or have let yourself or your family down: not at all 7. Trouble concentrating on things, such as reading the newspaper or watching television: not at all 8. Moving or speaking so slowly that other people could have noticed. Or the opposite - being so fidgety or restless that you have been moving around a lot more than usual: not at all 9. Thoughts that you would be better off or of hurting yourself in some way: not at all Total score: 0 Depression Screening Interpretation: Negative Depression Screening Done: Yes 10604 - PHQ-9 Billing: Yes Source: Developed by Drs. Michael Conway, Melissa Simmons, Nima Bonilla and colleagues, with an educational viraj from [employer]. Thrive Questionnaire Date Thrive assessed: 05/15/24 I am a: Patient What is your living situation today?: I choose not to answer this question Within the past 12 months, did the food you bought not last and you didn't have the money to get more?: I choose not to answer this question Within the past 12 months, did you worry whether your food would run out before you got money to buy more?: I choose not to answer this question Do you have trouble paying for medicines?: I choose not to answer this question Do you have trouble getting transportation to medical appointments?: I choose not to answer this question Do you have trouble paying your heating and electricity bill?: I choose not to answer this question Do you have trouble taking care of your child, family member or friend?: I choose not to answer this question Do you have trouble with day-to-day activities such as bathing, preparing meals, shopping, managing finances, etc.?: I choose not to answer this question Are you currently unemployed and looking for a job?: I choose not to answer this question Are you interested in more education?: I choose not to answer this question Please select the resources that you would like help with: None Currently or been in a relationship where the following occur: I choose not to answer THRIVE Score: 0 AUDIT C Alcohol Use Questionnaire (AUDIT-C) 1. How often do you have a drink containing alcohol?: Never 3. How often do you have six or more drinks on one occasion?: Never Total Score: 0 Score Reviewed/Action Taken: Yes ULISSES-7 AMB Questionnaire ULISSES-7 Date ULISSES - 7 assessed: 05/15/24 Source: Developed by Drs. Michael Conway, Melissa Simmons, Nima Bonilla and colleagues, with an educational viraj from [employer]. Physical exam (Primary Care) Vital Signs: Last Vital Signs Temp 97.7 F 12/14/24 10:54 Pulse 81 12/14/24 10:54 Resp 16 12/14/24 10:54 BP 150/64 H 12/14/24 10:54 Pulse Ox 95 12/14/24 10:54 Oxygen Delivery Method Room Air 12/14/24 10:54 BMI result Body Mass Index 27.5 Tobacco/Smoking Status: Tobacco use Status Tobacco use date assessed 12/14/24 12/14/24 10:58 Patient Tobacco Use Status Never used Tobacco 12/14/24 10:54 e-Cigarette/Vaping Use Never Used 12/14/24 10:54 PHQ-9: PHQ-9 Score PHQ-9: Total score 0 12/14/24 15:34 Depression Screening Interpretation: Negative Thrive Assessment: Date of Thrive Assessment Date Thrive assessed 05/15/24 12/14/24 10:54 Currently or been in a relationship where the following occur: I choose not to answer Coding Level of Care Code Est Pt Level 3 (95967) Complex EM visit Add On G2211 Diagnoses White coat syndrome with hypertension I10 Impaired fasting blood sugar R73.01 Anemia in other chronic diseases classified elsewhere D63.8 Anemia type: other cause Other causes of anemia: chronic disease, other Additional Codes PHQ-9 - 01508 - PHQ-9 Billing: Yes ([id number]) Assessment & Plan Assessment & Plan (1) White coat syndrome with hypertension: Code(s): I10 - Essential (primary) hypertension Category: Medical (2) Impaired fasting blood sugar: Code(s): R73.01 - Impaired fasting glucose Category: Medical (3) Anemia: Code(s): D64.9 - Anemia, unspecified Category: Medical Qualifiers: Anemia type: other cause Other causes of anemia: chronic disease, other Qualified Code(s): D63.8 - Anemia in other chronic diseases classified elsewhere Plan Hypertension: - The patient has a history of elevated blood pressure and was last seen on November 21, 2024. - Losartan 25 mg was added to his regimen at that time to manage hypertension. - Recent blood pressure readings at home have been in the 130s, but high during office visits. - The patient reports consistent home monitoring with occasional discrepancies in readings compared to clinical settings. Anemia: - Laboratory results from December 12 indicate a hemoglobin level of 13.7, consistent with slight anemia noted earlier this year. - Stable with no new symptoms reported. Back Pain: - Reports chronic back pain due to severe multilevel degenerative changes and disc bulge in the lumbar spine. - Currently managed with physical therapy and Tylenol; discontinued gabapentin and tramadol. - Pain has not worsened over the past days, with intermittent mild discomfort especially in the ankle without identifiable aggravating factors. 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 - Continue regular home monitoring of blood pressure; adjust dosage as needed if symptoms such as dizziness occur. - Follow-up in 6 months unless adverse effects or uncontrolled symptoms are reported. - Continue current anemia monitoring; no immediate intervention required as levels are stable. - Patient advised to continue physical therapy for back pain and to avoid salt intake. - Suggest evaluation by customer resolution specialist if ankle discomfort persists. - Ensure flu vaccine obtained from pharmacy for senior dose if desired by the patient. Medications: Changed From losartan 25 mg PO DAILY 30 tabs 0RF To losartan 25 mg PO BID 90 tabs 0RF
[2024-12-14 10:54] VITALS: BP 150/64; PULSE 81; RESP 16; TEMP 36.5; O2SAT 95; BMI 27.5
--- OUTSIDE RECORDS SUMMARY | 2024-12-14 12:34 | XMS_ITS | Clinical Summary ---
Author Organization [facility] ity Address [address] [place] [address] Care Team Providers Care Security Advisor Name Role Phone Ray Padilla MD Primary [...] age to complete this topic Care Teams Security Advisor Relationship Specialty Start Date End Date Ray Padilla MD PCP - General Internal Medicine 07/22/16
--- OUTSIDE RECORDS SUMMARY | 2024-12-14 12:34 | XMS_ITS | Clinical Summary ---
Author Organization [facility] Address [address] [place] [address] Care Team Providers Care Detective Narcotics And Vice Name Role Phone Unavailable Primary Care Provider [...] Description 12/26/2024 9:40 AM EST Office Visit [address] [place] [id number] Jaymie Lopez [address] [place] [address] Health Maintenance Due Date Last Done Comments [...] Drug Screen 02/22/2024 Depression Annual Screen 02/22/2024 [id number] (1 - season) 2024 Imm-Influenza (#1) 2024 [...] Most Recently Relevant to Health Maintenance [place] [facility]
== END 2024-12-14 11:14 | disposition home or self-care (01) ==
LOC: HO.HMCC 10:46
PROVIDERS: PCP Internal Medicine; Visit Provider Internal Medicine
DX: I10 Essential (primary) hypertension (principal); R73.01 Impaired fasting glucose; D63.8 Anemia in other chronic diseases classified elsewhere

== ENCOUNTER → 2024-12-14 10:45 | Outpatient (BNVA) | payer MEDICARE, MEDICAID, SELFPAY | PROVIDERS: PCP Internal Medicine; Visit Provider Internal Medicine | DX: I10 Essential (primary) hypertension (principal); R73.01 Impaired fasting glucose; D63.8 Anemia in other chronic diseases classified elsewhere | CPT/HCPCS: 96127; 99212 ==

== ENCOUNTER 2024-12-26 13:33 | Outpatient (AMB) | payer MEDICARE, MEDICAID, SELFPAY ==
--- NOTE | 2024-12-26 13:39 | MHC.OFFVIS ---
Vital Signs 12/26/24 13:40 Height 6 ft Weight 200 lb BMI 27.1 BP 138/62 Blood Pressure Location Lt brachial Position Sitting Pulse 76 Pulse Source Pulse Oximeter Intake Visit Reasons: 3m follow up Allergies NSAIDS (Non-Steroidal Anti-Inflamma Adverse Reaction (Verified 11/21/24 10:38) Nausea and Vomiting none Allergy (Unknown, Uncoded 10/18/24 13:51) unknown Medication List - Last Reconciled 12/26/24 by Jarret Rueda MD losartan 25 mg PO BID HPI Comments Details: Rc returns for follow-up. Recently seen in consultation regarding dizziness. He was on atenolol/chlorthalidone 100 mg/25 mg. He was having random dizziness thought to be possibly from low blood pressure. During one of the actual events, blood pressure was in the low 100s in the heart rate in the 50s. Now he is off those medications in the dizziness itself is improved. He is no longer having those symptoms. No other complaints like exertional angina or shortness of breath. He is currently on losartan. Otherwise, he states he feels fine. He has undergone workup including echocardiogram, stress test, Holter and carotid studies. [facility] Medical History Hypertension, essential Family History Mother No problems noted. Father No problems noted. Social History Housing: House Alcohol intake: never Patient Tobacco Use Status: Never used Tobacco e-Cigarette/Vaping Use: Never Used Second Hand Smoke Exposure: No Current occupational status: retired Cognitive needs: No Hearing needs: No Vision needs: Yes Review of Systems Const Denies weakness ENT Denies dizziness Card Denies chest pain, Denies chest pain with activity, Denies syncope, Denies rapid heart rate, Denies pedal edema, Denies edema, Denies leg edema, Denies lightheadedness, Denies palpitations, Denies dyspnea, Denies dyspnea on exertion and Denies orthopnea Resp Denies cough, Denies dyspnea and Denies dyspnea on exertion GI Denies hematochezia and Denies change in stool character Musc Denies abnormal gait, Denies muscle cramps, Denies muscle weakness, Denies numbness, Denies radiating pain into limb and Denies tingling Neuro Denies abnormal gait, Denies dizziness, Denies syncope, Denies numbness, Denies tingling and Denies weakness Endo Denies palpitations Physical Exam Vital Signs: Last Vital Signs Pulse 76 12/26/24 13:40 BP 138/62 12/26/24 13:40 BMI result Body Mass Index 27.1 Const General: comfortable and no acute distress Orientation/consciousness: patient oriented x3 HEENT Other: Unremarkable Head: Yes normal to inspection Neck Neck: Yes normal visual inspection Chest Chest palpation & inspection: normal inspection of the chest Resp Auscultation: clear to auscultation bilaterally Cardio Palpation: normal PMI Heart sounds: S1 normal heart sound present, S2 normal heart sound present, no gallops, no murmurs and no rubs GI Palpation (GI): Soft to palpation Back/Spine/Pelvis Other: unremarkable Skin General skin exam: no rashes or lesions noted Neuro General: patient oriented x3 Extrem General: Yes normal to inspection Psych Mental Status: mental status grossly normal Assessment & Plan Assessment & Plan (1) Hypertension, essential: Code(s): I10 - Essential (primary) hypertension Category: Medical (2) Cardiomyopathy: Code(s): I42.9 - Cardiomyopathy, unspecified Category: Medical (3) Hypotension: Code(s): I95.9 - Hypotension, unspecified Category: Medical Qualifiers: Hypotension type: other hypotension type Qualified Code(s): I95.89 - Other hypotension (4) Near syncope: Code(s): R55 - Syncope and collapse Category: Medical Plan Suspected dizziness related to atenolol/chlorthalidone related hypotension which is now stopped. He is currently rather on losartan. Continue that. In the echocardiogram, LVEF is 45-50%. No significant valvular findings. Ascending aortic size 4 cm. Myocardial perfusion imaging study showed probably normal myocardial perfusion. In the Holter monitor, underlying rhythm is sinus; rare supraventricular ectopy; ventricular ectopy burden of 1.4%. Unremarkable carotid ultrasound. We will recheck him in one year with another echocardiogram. Otherwise, he will call us with any interim concerns like dizziness or anything else. Discussion Notes I discussed with the patient that his echocardiogram showed slightly reduced heart function, but it is not significantly low. We agreed to monitor this with a follow-up echocardiogram in one year. The patient was informed that his hypertension is currently well-managed with losartan, and he should continue this medication. I advised him to contact me if he experiences dizziness or any other symptoms. Patient was informed and verbally consented to the use of an ambient scribe for clinic note documentation during this visit. Orders: Orders CA echo transthoracic complete 1 Year I42.9 - Cardiomyopathy, unspecified Patient Instructions: - Continue taking losartan as prescribed. - Monitor for any dizziness or changes in symptoms and report them. - Follow up with an echocardiogram in one year. Coding Level of Care Code Est Pt Level 4 (35634) Complex EM visit Add On G2211 Diagnoses Hypertension, essential I10 Cardiomyopathy I42.9 Other specified hypotension I95.89 Hypotension type: other hypotension type Near syncope R55
[2024-12-26 13:40] VITALS: BP 138/62; PULSE 76; BMI 27.1
== END 2024-12-26 14:04 | disposition home or self-care (01) ==
LOC: HO.HCS 13:33
PROVIDERS: PCP Internal Medicine; Visit Provider Internal Medicine
DX: I10 Essential (primary) hypertension (principal); I42.9 Cardiomyopathy, unspecified; I95.89 Other hypotension; R55 Syncope and collapse
CPT/HCPCS: 99214; G2211

== ENCOUNTER → 2024-12-26 13:33 | Outpatient (BNVA) | payer MEDICARE, MEDICAID, SELFPAY | PROVIDERS: PCP Internal Medicine; Visit Provider Internal Medicine | DX: I10 Essential (primary) hypertension (principal); I42.9 Cardiomyopathy, unspecified; I95.89 Other hypotension; R42 Dizziness and giddiness | CPT/HCPCS: 99212 ==